=== PATIENT | male | born 1935 | race Caucasian/White ===

== ENCOUNTER 2017-10-09 15:16 | Emergency (ER) | payer MEDICARE, OTHER ==
[2017-10-09 16:56] LABS: BASOPHILS # (AUTO) 0.1 10^3/uL (0.0-0.1); BASOPHILS % (AUTO) 1.2 %; EOSINOPHILS # (AUTO) 0.2 10^3/uL (0.0-0.7); EOSINOPHILS % (AUTO) 2.7 %; HGB - HEMOGLOBIN 15.1 g/dL (14.0-18.0); LYMPHOCYTES % (AUTO) 27.2 %; MEAN CORPUSCULAR HEMOGLOBIN 30.2 pg (27.0-31.0); MEAN CORPUSCULAR HGB CONC 32.8 g/dL (32.0-36.0); MEAN PLATELET VOLUME 9.2 fL (7.4-11.4); MONOCYTES # (AUTO) 0.8 10^3/uL (0.0-1.0); MONOCYTES % (AUTO) 10.1 %; NEUTROPHILS # (AUTO) 4.4 10^3/uL (1.5-6.6); NEUTROPHILS % (AUTO) 58.8 %; PLT - PLATELET COUNT 193 10^3/uL (130-450); RED BLOOD COUNT 5.01 10^6/uL (4.70-6.10); RED CELL DISTRIBUTION WIDTH 13.2 % (12.0-15.0); WHITE BLOOD COUNT 7.5 x10^3/uL (4.8-10.8)
[2017-10-09 17:05] LABS: CALCIUM 9.7 mg/dL (8.5-10.3); CREATININE 0.9 mg/dL (0.6-1.2)
--- NOTE | 2017-10-09 17:05 | Ultrasound Report ---
EXAM: LEFT LOWER EXTREMITY VENOUS ULTRASOUND EXAM DATE: 10/09/2017 04:40 PM. CLINICAL HISTORY: Left lower extremity swelling popliteal pain hx DVT. COMPARISON: None. TECHNIQUE: Real-time sonographic vascular imaging was performed by the operations specialists through the lower extremity utilizing both color-flow and Doppler spectral analysis. Multiple promotions representative static umm ges were saved for review. FINDINGS: Common Femoral Vein (CFV): Normal. CFV-GSV Junction: Normal. Profunda Femoral Vein (PFV): Normal. Femoral Vein (FV) Prox: Normal. Femoral Vein (FV) Mid: Normal. Femoral Vein (FV) Dist: Normal. Popliteal Vein: Normal. Posterior Tibial Veins: Normal. Peroneal Veins: Normal. IMPRESSION: No evidence for deep venous thrombosis. [facility] Referring Provider Line: [phone] SITE ID: [id number]
--- NOTE | 2017-10-09 18:43 | ED Physician Documentation ---
History of Present Illness - Stated complaint Stated Complaint: PX BEHIND L KNEE - Chief complaint Chief Complaint: General - History obtained from History obtained from: Patient, Family - History of Present Illness Timing: Other (He has had long-standing problems with the left knee, it is always kind of stiff. For the last week or so though he can bend it much and it hurts behind the knee. 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.) Review of Systems Constitutional: denies: Fever, Chills GI: reports: Reviewed and negative : reports: Reviewed and negative PD PAST MEDICAL HISTORY - Past Medical History Cardiovascular: Atrial fibrillation Neuro: Headache/migraine GI: GERD : Other - Past Surgical History Past Surgical History: Yes General: Colonoscopy Ortho: Carpal Tunnel surgery - Present Medications Home Medications: Ambulatory Orders Medication Instructions Recorded Confirmed Aspirin [Gill Chewable Aspirin] 1 tab PO DAILY 01/01/16 01/01/16 Omeprazole [PriLOSEC] 1 cap PO DAILY 01/01/16 01/01/16 Meloxicam [Mobic] 7.5 mg PO BIDWM PRN #15 tablet 10/09/17 - Allergies Allergies/Adverse Reactions: Allergies Allergy/AdvReac Type Severity Reaction Status Date / Time nitroglycerin AdvReac Intermediate low b/p Verified 10/09/17 15:41 - Social History Does the pt smoke?: No Smoking Status: Never smoker Does the pt have substance abuse?: No - Immunizations Immunizations are current?: Yes - POLST Patient has POLST: No PD ED PE NORMAL - Vitals Vital signs reviewed: Yes - General General: Alert and oriented X 3, No acute distress - Extremities Extremities: Other (Left knee is nontender, full range of motion, some fullness and tenderness in the popliteal fossa without overt edema. No warmth or redness.) - Neuro Neuro: Alert and oriented X 3, Normal speech Results - Vitals Vitals: Vital Signs - 24 hr 10/09/17 15:36 Temperature 36.5 C Heart Rate 72 Respiratory 18 Rate Blood Pressure 165/88 H O2 Saturation 97 Oxygen O2 Source Room air - Labs Labs: Laboratory Tests 10/09/17 10/09/17 16:52 16:52 WBC 7.5 RBC 5.01 Hgb 15.1 Hct 46.0 MCV 92.0 MCH 30.2 MCHC 32.8 RDW 13.2 Plt Count 193 MPV 9.2 Neut # 4.4 Lymph # 2.0 [place] # 0.8 Eos # 0.2 Baso # 0.1 Absolute Nucleated RBC 0.00 Nucleated RBC % 0.0 Sodium 139 Potassium 4.1 Chloride 103 Carbon Dioxide 26 Anion Gap 10.0 BUN 16 Creatinine 0.9 Estimated GFR (MDRD) 81 L Glucose 86 Calcium 9.7 - Rads (name of study) LLE DVT scan Radiology: EMP read contemporaneously (no dvt) Departure - Departure Disposition: Home, Self Care Clinical Impression: Knee pain Qualifiers: Chronicity: acute Laterality: left Qualified Code(s): M25.562 - Pain in left knee Condition: Good Record reviewed to determine appropriate education?: Yes Instructions: ED Cyst Tinajero Follow-Up: [facility] [Provider Group] Prescriptions: Meloxicam [Mobic] 7.5 mg PO BIDWM PRN #15 tablet PRN Reason: Pain Comments: As discussed based on your examination 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 Follow-up with the orthopedist for further evaluation and treatment. Return if worse. Your blood pressure was elevated today on check into the emergency department. This does not mean that you have hypertension, it is a common phenomenon to come to the emergency department and have elevated blood pressure. I recommend that you see your primary care physician within the week to have it rechecked when you are feeling better.
[2017-10-09 18:50] VITALS: BP 156/93
== END 2017-10-09 18:50 | disposition home or self-care (01) ==
LOC: ED 15:16
DX: M25.562 Pain in left knee (principal); R03.0 Elevated blood-pressure reading, without diagnosis of hypertension; Z79.82 Long term (current) use of aspirin
CPT/HCPCS: 36415; 80048; 85025; 99283

== ENCOUNTER 2018-04-01 08:21 | Outpatient (CLI) | payer MEDICARE, OTHER ==
[2018-04-01 12:07] LABS: BASOPHILS # (AUTO) 0.1 10^3/uL (0.0-0.1); BASOPHILS % (AUTO) 0.9 %; EOSINOPHILS # (AUTO) 0.2 10^3/uL (0.0-0.7); EOSINOPHILS % (AUTO) 3.8 %; HGB - HEMOGLOBIN 15.1 g/dL (14.0-18.0); LYMPHOCYTES # (AUTO) 1.8 10^3/uL (1.5-3.5); LYMPHOCYTES % (AUTO) 31.1 %; MEAN CORPUSCULAR HEMOGLOBIN 31.5 pg (27.0-31.0); MEAN CORPUSCULAR HGB CONC 34.6 g/dL (32.0-36.0); MEAN PLATELET VOLUME 10.3 fL (7.4-11.4); MONOCYTES # (AUTO) 0.6 10^3/uL (0.0-1.0); NEUTROPHILS # (AUTO) 3.2 10^3/uL (1.5-6.6); NEUTROPHILS % (AUTO) 54.2 %; PLT - PLATELET COUNT 147 10^3/uL (130-450); WHITE BLOOD COUNT 5.9 x10^3/uL (4.8-10.8)
== END 2018-04-01 08:22 | disposition home or self-care (01) ==
LOC: LAB.F 08:21
PROVIDERS: ATTEND Physician Assistant Medical
DX: B35.1 Tinea unguium (principal)
CPT/HCPCS: 36415; 82565; 84450; 84460; 85025

== ENCOUNTER 2019-03-25 20:53 | Emergency (ER) | payer MEDICARE, OTHER ==
[2019-03-25 21:00] VITALS: BP 142/86
[2019-03-25] MEDS ORDERED: TETANUS/DIPHTHERIA/PERTUSSIS 0.5 ML SYRINGE IM ONE (21:27)
--- NOTE | 2019-03-25 21:28 | ED Physician Documentation ---
PD HPI LOWER EXT INJURY - Stated complaint Stated Complaint: LEG LAC - Chief complaint Chief Complaint: Laceration - History obtained from History obtained from: Patient - History of Present Illness PD HPI LOW EXT INJURY LOCATION: Right (Earlier in the day he cut his right barnes on a metal edge while working at home. About 5 years since his last tetanus shot. No other injuries.) Review of Systems Constitutional: reports: Reviewed and negative Cardiac: reports: Reviewed and negative Respiratory: reports: Reviewed and negative PD PAST MEDICAL HISTORY - Past Medical History Past Medical History: Yes Cardiovascular: Atrial fibrillation GI: GERD : Other - Past Surgical History Past Surgical History: Yes General: Colonoscopy Ortho: Carpal Tunnel surgery - Present Medications Home Medications: Ambulatory Orders Medication Instructions Recorded Confirmed Omeprazole [PriLOSEC] 1 cap PO DAILY 01/01/16 01/01/16 RX: Aspirin [Gill Chewable 1 tab PO DAILY 01/01/16 01/01/16 Aspirin] RX: Meloxicam [Mobic] 7.5 mg PO BIDWM PRN #15 tablet 10/09/17 - Allergies Allergies/Adverse Reactions: Allergies Allergy/AdvReac Type Severity Reaction Status Date / Time nitroglycerin AdvReac Intermediate low b/p Verified 10/09/17 15:41 hazelnuts Allergy Anaphylaxis Uncoded 03/25/19 21:21 - Social History Does the pt smoke?: No Smoking Status: Never smoker Does the pt drink ETOH?: Yes Does the pt have substance abuse?: No - Immunizations Immunizations are current?: Yes - POLST Patient has POLST: No PD ED PE NORMAL - Vitals Vital signs reviewed: Yes - General General: Alert and oriented X 3, No acute distress - Extremities Extremities: Other (There is a 2 cm linear shallow laceration right barnes that does not gape at all.) - Neuro Neuro: Alert and oriented X 3, Normal speech Results - Vitals Vitals: Vital Signs - 24 hr 03/25/19 20:56 Temperature 36.5 C Heart Rate 90 Respiratory 14 Rate Blood Pressure 142/86 H O2 Saturation 96 Oxygen O2 Source Room air Procedures - Laceration (location) Right barnes Length in cm: 2 Wound type: Linear, Superficial Wound Preparation: Irrigated copiously NS Skin layer closure: Dermabond, Steri strips Other: Tetanus booster given Complexity: Simple Departure - Departure Disposition: 01 Home, Self Care Clinical Impression: Laceration Condition: Good Record reviewed to determine appropriate education?: Yes Instructions: ED Laceration Ext Sutr Stap Tape Comments: Your blood pressure was elevated today on check into the emergency department. This does not mean that you have hypertension, it is a common phenomenon to come to the emergency department and have elevated blood pressure. I recommend that you see your primary care physician within the week to have it rechecked when you are feeling better. Discharge Date/Time: 03/25/19 21:36
== END 2019-03-25 21:36 | disposition home or self-care (01) ==
LOC: ED 20:53
DX: S81.811A Laceration without foreign body, right lower leg, initial encounter (principal); W26.8XXA Contact with other sharp object(s), not elsewhere classified, initial encounter; Y92.009 Unspecified place in unspecified non-institutional (private) residence as the place of occurrence of the external cause; R03.0 Elevated blood-pressure reading, without diagnosis of hypertension
CPT/HCPCS: 12001; 90471

== ENCOUNTER 2021-06-28 09:17 | Outpatient (CLI) | payer MEDICARE, OTHER ==
[2021-06-28 10:38] LABS: INR 3.6 (0.8-1.2); PT - PROTHROMBIN TIME 40.3 secs (9.9-12.6)
== END 2021-06-28 09:18 | disposition home or self-care (01) ==
LOC: LAB 09:17
PROVIDERS: ATTEND Nurse Practitioner Family
DX: I48.19 Other persistent atrial fibrillation (principal)
CPT/HCPCS: 36415; 36416; 85610

== ENCOUNTER 2022-01-06 22:00 | Outpatient (CLI) | payer MEDICARE, OTHER | END 2022-01-06 22:01 | disposition short-term general hospital (02) | LOC: EMS 22:00 | DX: R07.89 Other chest pain (principal); M79.602 Pain in left arm | CPT/HCPCS: A0425; A0429 ==

== ENCOUNTER 2022-02-11 08:00 | Outpatient (CLI) | payer MEDICARE, OTHER | END 2022-02-11 23:59 | disposition home or self-care (01) | LOC: LAB.S 08:00 | PROVIDERS: ATTEND Physician Assistant | DX: R30.0 Dysuria (principal) | CPT/HCPCS: 87077; 87086; 87181 ==

== ENCOUNTER 2022-03-03 21:53 | Outpatient (CLI) | payer MEDICARE, OTHER | END 2022-03-03 21:54 | disposition EMS.NT | LOC: EMS 21:53 | DX: Z03.89 Encounter for observation for other suspected diseases and conditions ruled out (principal) ==

== ENCOUNTER 2022-04-17 13:56 | Outpatient (CLI) | payer MEDICARE, OTHER ==
[2022-04-17 19:53] LABS: ABSOLUTE RETICS # AUTO 0.061 10^6/uL (0.020-0.110); BASOPHILS # (AUTO) 0.1 10^3/uL (0.0-0.1); BASOPHILS % (AUTO) 1.2 %; EOSINOPHILS # (AUTO) 0.1 10^3/uL (0.0-0.7); EOSINOPHILS % (AUTO) 1.2 %; HCT - HEMATOCRIT 35.5 % (42.0-52.0); HGB - HEMOGLOBIN 11.8 g/dL (14.0-18.0); LYMPHOCYTES # (AUTO) 1.3 10^3/uL (1.5-3.5); LYMPHOCYTES % (AUTO) 21.2 %; MEAN CORPUSCULAR HEMOGLOBIN 32.1 pg (27.0-31.0); MEAN CORPUSCULAR HGB CONC 33.2 g/dL (32.0-36.0); MEAN CORPUSCULAR VOLUME 96.5 fL (80.0-94.0); MEAN PLATELET VOLUME 12.9 fL (7.4-11.4); MONOCYTES # (AUTO) 0.5 10^3/uL (0.0-1.0); MONOCYTES % (AUTO) 8.7 %; NEUTROPHILS % (AUTO) 67.5 %; PLT - PLATELET COUNT 112 10^3/uL (130-450); RED BLOOD COUNT 3.68 10^6/uL (4.70-6.10); RETICULOCYTE COUNT % (AUTO) 1.66 % (0.5-2.3); WHITE BLOOD COUNT 5.9 x10^3/uL (4.8-10.8)
[2022-04-17 19:59] LABS: ALBUMIN/GLOBULIN RATIO 1.8 (1.0-2.2); BILIRUBIN,DIRECT 0.2 mg/dL (0.1-0.5); BILIRUBIN,TOTAL 1.1 mg/dL (0.2-1.0); CALCIUM 9.2 mg/dL (8.5-10.3); POTASSIUM 3.9 mmol/L (3.5-5.0); TOTAL PROTEIN 6.2 g/dL (6.7-8.2)
== END 2022-04-17 13:57 | disposition home or self-care (01) ==
LOC: LAB.S 13:56
PROVIDERS: ATTEND Internal Medicine Hematology & Oncology
DX: C82.91 Follicular lymphoma, unspecified, lymph nodes of head, face, and neck (principal)
CPT/HCPCS: 36415; 80053; 82248; 83010; 83615; 85025; 85045

== ENCOUNTER 2023-02-12 13:45 | Emergency (ER) | payer MEDICARE, OTHER ==
[2023-02-12 13:55] VITALS: BP 118/86
--- NOTE | 2023-02-12 14:07 | ED Physician Documentation ---
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 He has dementia and does not remember falling and much of the history is from the because of this. She states he tripped and fell to the right and hit a retaining rock wall with his shoulder and right upper chest. He has a scrape on the left arm. No clear head injury. PD PAST MEDICAL HISTORY - Past Medical History Cardiovascular: Atrial fibrillation GI: GERD : Other - Past Surgical History Past Surgical History: Yes General: Colonoscopy Ortho: Carpal Tunnel surgery - Present Medications Home Medications: Ambulatory Orders Medication Instructions Recorded Confirmed Donepezil [Aricept] 5 mg PO HS 02/12/23 02/12/23 OLANZapine ODT [Zyprexa Odt] 5 mg SL BID 02/12/23 02/12/23 Warfarin [Coumadin] 5 mg PO DAILY 02/12/23 02/12/23 carvediloL [Coreg] 3.125 mg PO DAILY 02/12/23 02/12/23 - Allergies Allergies/Adverse Reactions: Allergies Allergy/AdvReac Type Severity Reaction Status Date / Time nitroglycerin AdvReac Intermediate low b/p Verified 02/12/23 13:50 hazelnuts Allergy Anaphylaxis Uncoded 03/25/19 21:21 - Social History Does the pt smoke?: No Smoking Status: Never smoker Does the pt drink ETOH?: Yes Does the pt have substance abuse?: No - Immunizations Immunizations are current?: Yes - POLST Patient has POLST: No PD ED PE NORMAL - Vitals Vital signs reviewed: Yes - General General: Other (He is alert and knows his name and that he is in the hospital but poor historian for recent events and does not know his age or date.) - HEENT HEENT: PERRL, EOMI - Neck Neck: Supple, no meningeal sign, No bony TTP - Respiratory Respiratory: No respiratory distress, Clear bilaterally - Abdomen Abdomen: Normal bowel sounds, Soft, Non tender - Back Back: No CVA TTP, No spinal TTP - Derm Derm: Normal color, Warm and dry - Extremities Extremities: Other (There is an abrasion on the left elbow. No tenderness or limited range of motion of any joints in the upper extremities.) - Neuro Eye Opening: Spontaneous Motor: Obeys Commands Verbal: Confused GCS Score: 14 Results - Vitals Vitals: Vital Signs - 24 hr 02/12/23 13:50 Temperature 36.2 C L Heart Rate 58 L Respiratory 16 Rate Blood Pressure 118/86 H O2 Saturation 97 Oxygen O2 Source Room air - Labs Labs: Laboratory Tests 02/12/23 14:51 INR (Fingerstick) 2.8 H - Rads (name of study) CT of the cervical spine shows multilevel degenerative changes and ACDF at C4-C5. No trauma. Relevant Findings:: Final report received, EMP independent interpretation of test CT of the chest shows known chronic cysts of the liver, no acute abnormality. Relevant Findings:: Final report received, EMP independent interpretation of test CT of the head showing microvascular ischemic changes and volume loss without acute trauma. Relevant Findings:: Final report received, EMP independent interpretation of test PD Medical Decision Making - ED course ED course: INR therapeutic at 2.8. CT chest neck and head negative for acute trauma. Moving all major joints well on reexamination and has been ambulatory. The patient and family were counseled as to the diagnosis and need for follow- up. I counseled the patient with regard to signs and symptoms that would necessitate an urgent reevaluation in the emergency department. They understand they are welcome to return at any time if worse or if not improving as expected. This document was made in part using voice recognition software. While efforts are made to proofread this documents, sound alike and grammatical errors may occur. Departure - Departure Disposition: 01 Home, Self Care Clinical Impression: Adequate anticoagulation on anticoagulant therapy Contusion of chest wall Qualifiers: Encounter type: initial encounter Laterality: right Qualified Code(s): S20.211A - Contusion of right front wall of thorax, initial encounter Condition: Good Record reviewed to determine appropriate education?: Yes Instructions: ED Contusion Chest Wall Comments: His INR is 2.8. We did a CT of the head, cervical spine, and chest which would catch all the ribs and upper abdomen. There are no fractures or other serious findings of trauma seen. Return for new or worsening symptoms. Tylenol as needed for aches and pains. Follow-up with your doctor towards the end of the week if there are any persistent issues.
--- NOTE | 2023-02-12 14:53 | CT Report ---
PROCEDURE: CERVICAL SPINE WO INDICATIONS: fall TECHNIQUE: Noncontrast 3 mm thick sections acquired from the skull base to the T4 level. Sagittal and coronal r eformats were then constructed. For radiation dose reduction, the following was used: automated exp osure control, adjustment of mA and/or kV according to patient size. COMPARISON: None. FINDINGS: Image quality: Excellent. Bones: No fractures or dislocations. Visualized superior ribs are intact. Postoperative changes of C4-5 ACDF without complication. Soft tissues: Prevertebral soft tissues are normal in thickness. No paravertebral hematomas. No ap ical pneumothoraces. IMPRESSION: 1. No acute traumatic abnormality of the cervical spine. 2. Multilevel degenerative changes of the cervical spine. 3. Postoperative changes of ACDF at C4-5. Reviewed by: Marshal Dhillon on 02/12/2023 1:51 PM MAUREEN Approved by: Marshal Dhillon on 02/12/2023 1:51 PM MAUREEN Station ID: [id number]
--- NOTE | 2023-02-12 14:56 | CT Report ---
PROCEDURE: CHEST WO INDICATIONS: chest inj TECHNIQUE: Noncontrast 1mm axial images were acquired from the pulmonary apices to the posterior costophrenic an gles. Axial 5 mm soft tissue kernel reconstructions were performed as well as 8 mm axial MIP and cor onal and sagittal 5 mm reformations. For radiation dose reduction, the following was used: automate d exposure control, adjustment of mA and/or kV according to patient size. COMPARISON: None FINDINGS: Image quality: Excellent. Lungs and pleura: No consolidation. No pleural effusions. No pneumothorax. No suspicious pulmonary n odules which require follow up. Mediastinum: Heart size is normal. No pericardial effusion. No large vessel abnormality. No mediastin al adenopathy by size criteria. Coronary artery calcifications. Aortic valve replacement. Chest wall and lower neck: Thyroid is unremarkable. No axillary or supraclavicular adenopathy by size . Bones: No aggressive osseous abnormality. Upper Abdomen: Simple cysts of the liver. IMPRESSION: No acute traumatic abnormality of the chest. Reviewed by: Marshal Dhillon on 02/12/2023 1:55 PM MAUREEN Approved by: Marshal Dhillon on 02/12/2023 1:55 PM MAUREEN Station ID: [id number]
--- NOTE | 2023-02-12 14:58 | CT Report ---
PROCEDURE: HEAD WO INDICATIONS: head inj TECHNIQUE: Noncontrast 4.5 mm thick angled axial sections acquired from the foramen magnum to the vertex. For r adiation dose reduction, the following was used: automated exposure control, adjustment of mA and/or kV according to patient size. COMPARISON: None. FINDINGS: Image quality: Excellent. CSF spaces: Basal cisterns are patent. No extra-axial fluid collections. Ventricles are normal in size and shape. Brain: No midline shift. No intracranial masses or hemorrhage. Murguia-white matter interface is norm al. Subcortical and periventricular hypodensities are consistent with microvascular ischemic disease and age-related cerebral volume loss. Bilateral frontal hygromas. Skull and face: Calvarium and visualized facial bones are intact, without suspicious lesions. Sinuses: Visualized sinuses and mastoids are clear. IMPRESSION: 1. No acute intracranial abnormality. 2. Microvascular ischemic disease and age-related cerebral volume loss. Reviewed by: Marshal Dhillon on 02/12/2023 1:56 PM MAUREEN Approved by: Marshal Dhillon on 02/12/2023 1:56 PM AKJUAN Station ID: [id number]
== END 2023-02-12 15:12 | disposition home or self-care (01) ==
LOC: ED 13:45
DX: S20.211A Contusion of right front wall of thorax, initial encounter (principal); W19.XXXA Unspecified fall, initial encounter; Y93.H2 Activity, gardening and landscaping; Y92.096 Garden or yard of other non-institutional residence as the place of occurrence of the external cause; I48.91 Unspecified atrial fibrillation; Z79.01 Long term (current) use of anticoagulants; Z79.899 Other long term (current) drug therapy
CPT/HCPCS: 85610; 99283; 99284

== ENCOUNTER 2023-02-26 14:45 | Outpatient (CLI) | payer MEDICARE, OTHER | END 2023-02-26 14:46 | disposition critical access hospital (66) | LOC: EMS 14:45 | DX: S01.112A Laceration without foreign body of left eyelid and periocular area, initial encounter (principal); S00.81XA Abrasion of other part of head, initial encounter; S40.812A Abrasion of left upper arm, initial encounter; M79.652 Pain in left thigh; W01.0XXA Fall on same level from slipping, tripping and stumbling without subsequent striking against object, initial encounter; Y92.414 Local residential or business street as the place of occurrence of the external cause | CPT/HCPCS: A0425; A0429 ==

== ENCOUNTER 2023-04-20 16:43 | Emergency (ER) | payer MEDICARE, OTHER ==
--- NOTE | 2023-04-20 18:39 | CT Report ---
PROCEDURE: CT brain without contrast INDICATIONS: fall, head injury, pt on warfarin TECHNIQUE: Helical axial CT of the brain was obtained without contrast and reformatted in multiple p lanes. Radiation dose reduction was achieved using automated exposure control or adjustment of mA and /or kV according to patient size. COMPARISON: 02/12/2023 FINDINGS: CSF spaces: Ventricles are appropriate in size and position. No hydrocephalus. Basal cisterns unre markable. Brain: No midline shift. No intracranial masses or hemorrhage. Murguia-white matter interface is norm al. Moderate atrophy and multifocal white matter chronic ischemic change noted. Atherosclerotic vascular calcification noted in the cavernous segments of both internal carotid arteries as well as the intrad ural vertebral arteries. Incidental right frontal extra-axial arachnoid cyst measures 3.9 x 2.2 cm as sociated mass effect on the superior frontal gyrus and thickening of the frontal bone Skull and face: Calvarium and skull base are unremarkable without suspicious lesion. Bilateral intr aocular lens replacement Sinuses: Visualized sinuses and mastoids are clear. IMPRESSION: Atrophy and chronic ischemic change without intracranial hemorrhage or mass effect. Incidental right frontal extra-axial arachnoid cyst Reviewed by: Edy Hou MD on 04/20/2023 5:37 PM AKDT Approved by: Edy Hou MD on 04/20/2023 5:37 PM AKDT Station ID: [id number]
[2023-04-20] MEDS ORDERED: ACETAMINOPHEN 325 MG TABLET PO STA (19:22)
--- NOTE | 2023-04-20 19:28 | XRAY Report ---
PROCEDURE: Ribs w/PA Chest RT INDICATIONS: R rib pain s/p fall TECHNIQUE: 4 views of the ribs were acquired, along with a single view chest. COMPARISON: None. FINDINGS: Surgical changes and devices: None. Bones and chest wall: No fractures or dislocations. No suspicious bony lesions. Overlying soft tis sues appear unremarkable. Status post ACDF of the lower cervical spine. Lungs and pleura: No pleural effusions or pneumothorax. Lungs appear clear. Mediastinum: Mediastinal contours appear normal. Heart size is enlarged. IMPRESSION: No displaced rib fracture or pneumothorax. Reviewed by: Marshal Dhillon on 04/20/2023 7:27 PM PDT Approved by: Marshal Dhillon on 04/20/2023 7:27 PM PDT Station ID: [id number]
--- NOTE | 2023-04-20 19:31 | ED Physician Documentation ---
History of Present Illness - Stated complaint Stated Complaint: GLF - Chief complaint Chief Complaint: Trauma Ch/Bk - History obtained from History obtained from: Patient, Family - History of Present Illness Timing: Today Pain level max: 4 Pain level now: 3 - Additonal information Additional information: 87-year-old male presents to the emergency department after falling asleep on a bench today and falling off the bench and onto a carpeted surface. Unclear if he hit his head or not. He is on warfarin. Complains of right-sided rib pain. No neck or back pain. Worse with movement, better with rest. No difficulty breathing. No vomiting. No diarrhea. No constipation. No altered mental status. No fevers. No chills. No shoulder, hip or knee pain. Review of Systems Constitutional: denies: Fever, Chills GI: denies: Vomiting, Diarrhea Skin: denies: Rash Musculoskeletal: denies: Neck pain, Back pain Neurologic: denies: Headache PD PAST MEDICAL HISTORY - Past Medical History Cardiovascular: Atrial fibrillation GI: GERD : Other - Past Surgical History Past Surgical History: Yes General: Colonoscopy Ortho: Carpal Tunnel surgery - Present Medications Home Medications: Ambulatory Orders Medication Instructions Recorded Confirmed Donepezil [Aricept] 5 mg PO HS 02/12/23 02/12/23 OLANZapine ODT [Zyprexa Odt] 5 mg SL BID 02/12/23 02/12/23 Warfarin [Coumadin] 5 mg PO DAILY 02/12/23 02/12/23 carvediloL [Coreg] 3.125 mg PO DAILY 02/12/23 02/12/23 - Allergies Allergies/Adverse Reactions: Allergies Allergy/AdvReac Type Severity Reaction Status Date / Time hazelnut Allergy Severe Anaphylaxis Verified 04/20/23 16:47 nitroglycerin AdvReac Intermediate low b/p Verified 04/20/23 16:47 - Social History Does the pt smoke?: No Smoking Status: Never smoker Does the pt drink ETOH?: Yes Does the pt have substance abuse?: No - Immunizations Immunizations are current?: Yes - POLST Patient has POLST: No PD ED PE NORMAL - Vitals Vital signs reviewed: Yes - General General: Alert and oriented X 3, No acute distress, Well developed/nourished - HEENT HEENT: Atraumatic, PERRL, Ears normal, Moist mucous membranes, Pharynx benign - Neck Neck: Supple, no meningeal sign, No bony TTP - Cardiac Cardiac: RRR, Strong equal pulses - Respiratory Respiratory: No respiratory distress, Clear bilaterally - Abdomen Abdomen: Normal bowel sounds, Soft, Non tender, Non distended - Back Back: No spinal TTP - Derm Derm: Warm and dry - Extremities Extremities: No deformity, No tenderness to palpate, Normal ROM s pain, No edema, No calf tenderness / cord - Neuro Neuro: Alert and oriented X 3 - Psych Psych: Normal mood, Normal affect - Free text exam Free text exam: Mild tender to palpation right lower ribs, approximately 10 through 12, posterior axillary line. No crepitus. No deformity. No ecchymosis Results - Vitals Vitals: Vital Signs - 24 hr 04/20/23 04/20/23 16:49 19:33 Temperature 36.5 C Heart Rate 54 L 59 L Respiratory 16 11 L Rate Blood Pressure 157/83 H 144/65 H O2 Saturation 99 100 Oxygen O2 Source Room air - Labs Labs: Laboratory Tests 04/20/23 17:28 INR (Fingerstick) 2.2 H - Rads (name of study) Head CT Relevant Findings:: Final report received, See rad report Right rib with chest x-ray Relevant Findings:: Final report received, See rad report PD Medical Decision Making - ED course Complexity details: re-evaluated patient, considered differential, d/w patient, d/w family ED course: No acute findings on head CT or rib series with chest x-ray. INR is 2.2. Pain improved with Tylenol. No indication for advanced imaging. No pneumothorax or hemothorax. No crepitus. No ecchymosis. We will continue Tylenol at home and follow-up with his doctor for further care. Patient counseled regarding signs and symptoms for which I believe and urgent re-evaluation would be necessary. Patient with good understanding of and agreement to plan and is comfortable going home at this time This document was made in part using voice recognition software. While efforts are made to proofread this document, sound alike and grammatical errors may occur. Patient is ambulating without difficulty in the emergency department. Departure - Departure Disposition: 01 Home, Self Care Clinical Impression: Adequate anticoagulation on anticoagulant therapy, Ground-level fall Contusion of chest wall Qualifiers: Encounter type: initial encounter Laterality: right Qualified Code(s): S20.211A - Contusion of right front wall of thorax, initial encounter Condition: Good Instructions: ED Contusion Chest Wall Follow-Up: Meera Marquis MD [Primary Care Provider] - Within 1 week Comments: Your head CT and rib x-rays do not show any acute abnormalities today. Please follow-up with your doctor as needed for further care. You can use Tylenol as needed for pain at home. Your INR is 2.2 today. Forms: PCP List Discharge Date/Time: 04/20/23 19:38
[2023-04-20 19:42] VITALS: BP 144/65; O2SAT 100
== END 2023-04-20 19:38 | disposition home or self-care (01) ==
LOC: ED 16:43
DX: S20.211A Contusion of right front wall of thorax, initial encounter (principal); W17.89XA Other fall from one level to another, initial encounter; I48.91 Unspecified atrial fibrillation; Z79.01 Long term (current) use of anticoagulants
CPT/HCPCS: 70450; 71101; 85610; 99283; 99284; A9270

== ENCOUNTER 2023-05-31 17:59 | Emergency (ER) | payer MEDICARE, OTHER ==
--- NOTE | 2023-05-31 18:12 | ED Physician Documentation ---
PD HPI HEAD INJURY - Stated complaint Stated Complaint: HEAD INJ - History obtained from History obtained from: Patient - Additional information Additional information: 88-year-old gentleman on warfarin had a trip and fall and hit his forehead on the ground. He has a mild headache. No loss of consciousness. This happened about 2 hours ago. PD PAST MEDICAL HISTORY - Past Medical History Cardiovascular: Atrial fibrillation GI: GERD : Other - Past Surgical History Past Surgical History: Yes General: Colonoscopy Ortho: Carpal Tunnel surgery - Present Medications Home Medications: Ambulatory Orders Medication Instructions Recorded Confirmed Donepezil [Aricept] 5 mg PO HS 02/12/23 05/31/23 OLANZapine ODT [Zyprexa Odt] 5 mg SL BID 02/12/23 05/31/23 Warfarin [Coumadin] 5 mg PO DAILY 02/12/23 05/31/23 carvediloL [Coreg] 3.125 mg PO DAILY 02/12/23 05/31/23 - Allergies Allergies/Adverse Reactions: Allergies Allergy/AdvReac Type Severity Reaction Status Date / Time hazelnut Allergy Severe Anaphylaxis Verified 05/31/23 18:13 nitroglycerin AdvReac Intermediate low b/p Verified 05/31/23 18:13 - Social History Does the pt smoke?: No Smoking Status: Never smoker Does the pt drink ETOH?: Yes Does the pt have substance abuse?: No - Immunizations Immunizations are current?: Yes - POLST Patient has POLST: No PD ED PE NORMAL - Vitals Vital signs reviewed: Yes - General General: Alert and oriented X 3, No acute distress - HEENT HEENT: PERRL, EOMI, Other (Abrasion above the left eyebrow) - Neck Neck: Supple, no meningeal sign, No bony TTP - Extremities Extremities: Other (Nontender skin care proximal forearm on the left.) - Neuro Neuro: Alert and oriented X 3, Normal speech - Psych Psych: Normal mood, Normal affect Results - Vitals Vitals: Vital Signs - 24 hr 05/31/23 18:09 Temperature 36.2 C L Heart Rate 71 Respiratory 20 Rate Blood Pressure 165/131 H O2 Saturation 100 Oxygen O2 Source Room air - Labs Labs: Laboratory Tests 05/31/23 18:13 INR (Fingerstick) 2.2 H - Rads (name of study) CT head Relevant Findings:: Final report received, EMP independent interpretation of test Procedures - Laceration (location) Proximal left forearm Length in cm: 2 Wound type: Linear, Superficial Wound preparation: Irrigated copiously NS Skin layer closure: Dermabond Other: Patient tolerated well, No complications, Neurovascular intact PD Medical Decision Making - ED course ED course: CT of the head was unremarkable. INR 2.2. Did not require any pain medication here. The patient and family were counseled as to the diagnosis and need for follow- up. I counseled the patient with regard to signs and symptoms that would necessitate an urgent reevaluation in the emergency department. They understand they are welcome to return at any time if worse or if not improving as expected. This document was made in part using voice recognition software. While efforts are made to proofread this documents, sound alike and grammatical errors may occur. Departure - Departure Disposition: 01 Home, Self Care Clinical Impression: Adequate anticoagulation on anticoagulant therapy Head injury Qualifiers: Encounter type: initial encounter Qualified Code(s): S09.90XA - Unspecified injury of head, initial encounter Facial abrasion Qualifiers: Encounter type: initial encounter Qualified Code(s): S00.81XA - Abrasion of other part of head, initial encounter Skin tear of elbow without complication Qualifiers: Encounter type: initial encounter Laterality: left Qualified Code(s): S51.012A - Laceration without foreign body of left elbow, initial encounter Condition: Good Record reviewed to determine appropriate education?: Yes Instructions: ED Head Injury Closed, ED Laceration Facial Skin Glue, Falls Prevent Home, Falls Change Living Space Comments: Your INR today is 2.2 and your CAT scan of the head was normal. I am including some information in this packet about how to make your home safer with regard to fall hazards. Return for new or worsening symptoms especially significant headache.
[2023-05-31 18:15] VITALS: BP 165/131; O2SAT 100
--- NOTE | 2023-05-31 18:57 | CT Report ---
PROCEDURE: HEAD WO INDICATIONS: head inj TECHNIQUE: Noncontrast 4.5 mm thick angled axial sections acquired from the foramen magnum to the vertex. For r adiation dose reduction, the following was used: automated exposure control, adjustment of mA and/or kV according to patient size. COMPARISON: 04/20/2023 FINDINGS: Image quality: Excellent. CSF spaces: Basal cisterns are patent. Right frontal extra-axial arachnoid cyst is again seen unchan ged in size and appearance from previous studies The ventricles are symmetric in size and shape. Brain: No intracranial bleeds or masses. There is cerebral volume loss for age, with resultant vent ricular and sulcal prominence. There are periventricular and deep white matter chronic small vessel ischemic changes. There is intracranial internal carotid artery atherosclerosis. Skull and face: Calvarium and visualized facial bones appear intact, without suspicious lesions. Sinuses: Visualized sinuses and mastoids are clear. IMPRESSION: 1. No acute intracranial abnormalities. No significant changes from previous study. Reviewed by: Damir Longo MD on 05/31/2023 6:56 PM PDT Approved by: Damir Longo MD on 05/31/2023 6:56 PM PDT Station ID: [id number]
== END 2023-05-31 19:15 | disposition home or self-care (01) ==
LOC: ED 17:59
DX: S09.90XA Unspecified injury of head, initial encounter (principal); S00.81XA Abrasion of other part of head, initial encounter; S51.012A Laceration without foreign body of left elbow, initial encounter; W01.198A Fall on same level from slipping, tripping and stumbling with subsequent striking against other object, initial encounter; Y92.89 Other specified places as the place of occurrence of the external cause; Y99.9 Unspecified external cause status; I48.91 Unspecified atrial fibrillation; Z79.01 Long term (current) use of anticoagulants
CPT/HCPCS: 12011; 85610; 99283; 99284

== ENCOUNTER 2023-07-22 17:34 | Emergency (ER) | payer MEDICARE, OTHER ==
[2023-07-22 18:22] LABS: BASOPHILS # (AUTO) 0.1 10^3/uL (0.0-0.1); EOSINOPHILS # (AUTO) 0.2 10^3/uL (0.0-0.7); EOSINOPHILS % (AUTO) 3.4 %; HCT - HEMATOCRIT 35.8 % (42.0-52.0); HGB - HEMOGLOBIN 11.9 g/dL (14.0-18.0); LYMPHOCYTES # (AUTO) 1.3 10^3/uL (1.5-3.5); LYMPHOCYTES % (AUTO) 22.7 %; MEAN CORPUSCULAR HGB CONC 33.2 g/dL (32.0-36.0); MEAN CORPUSCULAR VOLUME 93.2 fL (80.0-94.0); MEAN PLATELET VOLUME 12.7 fL (7.4-11.4); MONOCYTES # (AUTO) 0.7 10^3/uL (0.0-1.0); MONOCYTES % (AUTO) 11.2 %; NEUTROPHILS # (AUTO) 3.6 10^3/uL (1.5-6.6); NEUTROPHILS % (AUTO) 61.4 %; PLT - PLATELET COUNT 145 10^3/uL (130-450); RED BLOOD COUNT 3.84 10^6/uL (4.70-6.10); RED CELL DISTRIBUTION WIDTH 13.7 % (12.0-15.0); WHITE BLOOD COUNT 5.9 x10^3/uL (4.8-10.8)
[2023-07-22 18:24] LABS: INR 2.3 (0.8-1.2); PT - PROTHROMBIN TIME 23.3 secs (9.9-12.6)
[2023-07-22 18:37] LABS: ALBUMIN/GLOBULIN RATIO 1.6 (1.0-2.2); BILIRUBIN,TOTAL 1.1 mg/dL (0.2-1.0); CALCIUM 9.7 mg/dL (8.5-10.3); CREATININE 0.9 mg/dL (0.6-1.3); POTASSIUM 4.5 mmol/L (3.5-4.5); TOTAL PROTEIN 6.5 g/dL (6.4-8.9)
--- NOTE | 2023-07-22 18:58 | ED Physician Documentation ---
History of Present Illness - Stated complaint Stated Complaint: - Chief complaint Chief Complaint: General - History obtained from History obtained from: Patient, Family - Additonal information Additional information: 88-year-old gentleman presents with his . He has had some darker stools lately. Nothing obviously bloody but was referred here by GI for potential GI bleeding. He has no history of GI bleeding. 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 He does have mild dementia so much of the history is from the . PD PAST MEDICAL HISTORY - Past Medical History Past Medical History: Yes Cardiovascular: Atrial fibrillation GI: GERD : Other - Past Surgical History Past Surgical History: Yes General: Colonoscopy Ortho: Carpal Tunnel surgery - Present Medications Home Medications: Ambulatory Orders Medication Instructions Recorded Confirmed Donepezil [Aricept] 5 mg PO HS 02/12/23 05/31/23 OLANZapine ODT [Zyprexa Odt] 5 mg SL BID 02/12/23 05/31/23 Warfarin [Coumadin] 5 mg PO DAILY 02/12/23 05/31/23 carvediloL [Coreg] 3.125 mg PO DAILY 02/12/23 05/31/23 - Allergies Allergies/Adverse Reactions: Allergies Allergy/AdvReac Type Severity Reaction Status Date / Time hazelnut Allergy Severe Anaphylaxis Verified 06/08/23 21:53 nitroglycerin AdvReac Intermediate low b/p Verified 06/08/23 21:53 - Social History Does the pt smoke?: No Smoking Status: Never smoker Does the pt drink ETOH?: Yes Does the pt have substance abuse?: No - Immunizations Immunizations are current?: Yes - POLST Patient has POLST: No PD ED PE NORMAL - General General: No acute distress - Abdomen Abdomen: Non tender - Rectal Rectal: Other (Brown stool that does not look melanic nor bloody in the vault and sent for guaiac) - Psych Psych: Normal mood Results - Vitals Vitals: Vital Signs - 24 hr 07/22/23 07/22/23 17:47 19:16 Temperature 36.7 C Heart Rate 59 L 63 Respiratory 18 16 Rate Blood Pressure 163/63 H 176/83 H O2 Saturation 99 100 Oxygen O2 Source Room air - Labs Labs: Microbiology 07/22/23 19:20 Occult Blood - Final Stool Laboratory Tests 07/22/23 07/22/23 07/22/23 18:06 18:06 18:06 WBC 5.9 RBC 3.84 L Hgb 11.9 L Hct 35.8 L MCV 93.2 MCH 31.0 MCHC 33.2 RDW 13.7 Plt Count 145 MPV 12.7 H Neut # (Auto) 3.6 Lymph # (Auto) 1.3 L [place] # (Auto) 0.7 Eos # (Auto) 0.2 Baso # (Auto) 0.1 Absolute Nucleated RBC 0.00 Nucleated RBC % 0.0 PT 23.3 H INR 2.3 H Sodium 139 Potassium 4.5 Chloride 105 Carbon Dioxide 29 Anion Gap 5.0 L BUN 18 Creatinine 0.9 Estimated GFR (MDRD) 80 L Glucose 123 H Calcium 9.7 Total Bilirubin 1.1 H AST 23 ALT 10 Alkaline Phosphatase 73 Total Protein 6.5 Albumin 4.0 Globulin 2.5 Albumin/Globulin Ratio 1.6 Lipase 20 Urine Color Urine Clarity Urine pH Ur Specific [place] Urine Protein Urine Glucose (UA) Urine Ketones Urine Occult Blood Urine Nitrite Urine Bilirubin Urine Urobilinogen Ur Leukocyte Esterase Ur Microscopic Review Urine Culture Comments 07/22/23 19:06 WBC RBC Hgb Hct MCV MCH MCHC RDW Plt Count MPV Neut # (Auto) Lymph # (Auto) [place] # (Auto) Eos # (Auto) Baso # (Auto) Absolute Nucleated RBC Nucleated RBC % PT INR Sodium Potassium Chloride Carbon Dioxide Anion Gap BUN Creatinine Estimated GFR (MDRD) Glucose Calcium Total Bilirubin AST ALT Alkaline Phosphatase Total Protein Albumin Globulin Albumin/Globulin Ratio Lipase Urine Color YELLOW Urine Clarity CLEAR Urine pH 6.0 Ur Specific [place] >=1.030 H Urine Protein TRACE Urine Glucose (UA) NEGATIVE Urine Ketones NEGATIVE Urine Occult Blood NEGATIVE Urine Nitrite NEGATIVE Urine Bilirubin NEGATIVE Urine Urobilinogen 1 (NORMAL) Ur Leukocyte Esterase NEGATIVE Ur Microscopic Review NOT INDICATED Urine Culture Comments NOT INDICATED PD Medical Decision Making - ED course Complexity details: reviewed results (Hemoglobin 11.9, at the end of May he was here and it was 12.0 and in April he was here and it was 11.8 so this is stable. INR therapeutic at 2.3. CMP unremarkable.) ED course: 88-year-old gentleman on warfarin has had some oddly colored stools recently. Not obviously blood. He was guaiac negative with stable H&H though. Departure - Departure Disposition: 01 Home, Self Care Clinical Impression: Dark stools Condition: Good Record reviewed to determine appropriate education?: Yes Comments: There was no blood in his stool today. And his blood counts are pretty much where they have been recently without evidence of recent bleeding there. Call your doctor to arrange a follow-up appointment, make the next available appointment. In the interim, return anytime if worse or if new symptoms de velop. Forms: PCP List
[2023-07-22 19:26] VITALS: BP 176/83; O2SAT 100
[2023-07-22 19:29] LABS: GLUCOSE, URINE (UA) NEGATIVE (NEGATIVE); KETONES,URINE (UA) NEGATIVE (NEGATIVE); LEUKOCYTE ESTERASE, URINE NEGATIVE (NEGATIVE); NITRITE,URINE NEGATIVE (NEGATIVE); OCCULT BLOOD,URINE NEGATIVE (NEGATIVE); PROTEIN,URINE TRACE mg/dL (NEGATIVE); UROBILINOGEN,URINE 1 (NORMAL) E.U./dL (NORMAL)
[2023-07-22 19:30] LABS: BILIRUBIN,URINE NEGATIVE (NEGATIVE); CLARITY,URINE CLEAR (CLEAR); ICTOTEST,URINE NEGATIVE
== END 2023-07-22 19:55 | disposition home or self-care (01) ==
LOC: ED 17:34
DX: R19.5 Other fecal abnormalities (principal); I48.91 Unspecified atrial fibrillation; Z79.01 Long term (current) use of anticoagulants
CPT/HCPCS: 36415; 80053; 81001; 81003; 82272; 83690; 85025; 85610; 87086; 99283

== ENCOUNTER 2023-08-05 10:22 | Emergency (ER) | payer MEDICARE, OTHER ==
--- NOTE | 2023-08-05 10:57 | ED Physician Documentation ---
History of Present Illness - Stated complaint Stated Complaint: GLF - Chief complaint Chief Complaint: Trauma Hd/Nk - Additonal information Additional information: Patient 88-year-old male presenting to the emergency department after fall. Accompanied by who is primary regional geodetic advisor. was not present during the event but reports that she found him down near their treadmill. He is on Coumadin and has a known history of severe dementia. Has been complaining of "head pain" per his . Also complaining of left-sided chest wall pain. History is limited by his dementia. Review of Systems Unable to obtain: Dementia PD PAST MEDICAL HISTORY - Past Medical History Cardiovascular: Atrial fibrillation GI: GERD : Other - Past Surgical History Past Surgical History: Yes General: Colonoscopy Ortho: Carpal Tunnel surgery - Present Medications Home Medications: Ambulatory Orders Medication Instructions Recorded Confirmed Donepezil [Aricept] 5 mg PO HS 02/12/23 05/31/23 OLANZapine ODT [Zyprexa Odt] 5 mg SL BID 02/12/23 05/31/23 Warfarin [Coumadin] 5 mg PO DAILY 02/12/23 05/31/23 carvediloL [Coreg] 3.125 mg PO DAILY 02/12/23 05/31/23 - Allergies Allergies/Adverse Reactions: Allergies Allergy/AdvReac Type Severity Reaction Status Date / Time hazelnut Allergy Severe Anaphylaxis Verified 06/08/23 21:53 nitroglycerin AdvReac Intermediate low b/p Verified 06/08/23 21:53 - Social History Does the pt smoke?: No Smoking Status: Never smoker Does the pt drink ETOH?: Yes Does the pt have substance abuse?: No - Immunizations Immunizations are current?: Yes - POLST Patient has POLST: No PD ED PE NORMAL - Vitals Vital signs reviewed: Yes - General General: No acute distress - HEENT HEENT: Atraumatic - Cardiac Cardiac: RRR - Respiratory Respiratory: No respiratory distress - Abdomen Abdomen: Normal bowel sounds - Extremities Extremities: No deformity - Neuro Neuro: Other (Patient disorientated to place and time. Generally nonfocal nonlateralizing neurologic exam.) Results - Vitals Vitals: Vital Signs - 24 hr 08/05/23 08/05/23 08/05/23 10:29 13:03 14:08 Temperature 36.8 C Heart Rate 54 L 47 L 59 L Respiratory 18 16 18 Rate Blood Pressure 124/51 L 135/67 H 137/82 H O2 Saturation 97 97 99 Oxygen O2 Source Room air - EKG (time done) 1254 EKG releavant findings:: EKG personally interpreted by author of this note. Relevant findings are: Atrial fibrillation with rate 41 bpm. Left axis deviation. Left anterior fascicular block noted. Normal QRS and QTc intervals. No ST segment elevations or T wave inversions. - Labs Labs: Laboratory Tests 08/05/23 08/05/23 12:51 12:51 WBC 7.8 RBC 3.84 L Hgb 11.8 L Hct 35.3 L MCV 91.9 MCH 30.7 MCHC 33.4 RDW 13.8 Plt Count 146 MPV 12.3 H Neut # (Auto) 5.0 Lymph # (Auto) 1.9 [place] # (Auto) 0.8 Eos # (Auto) 0.1 Baso # (Auto) 0.1 Absolute Nucleated RBC 0.00 Nucleated RBC % 0.0 Sodium 138 Potassium 4.1 Chloride 108 Carbon Dioxide 25 Anion Gap 5.0 L BUN 17 Creatinine 0.9 Estimated GFR (MDRD) 80 L Glucose 127 H Calcium 9.5 Total Bilirubin 0.8 AST 23 ALT 11 Alkaline Phosphatase 65 Total Protein 6.2 L Albumin 4.0 Globulin 2.2 Albumin/Globulin Ratio 1.8 Lipase 10 L PD Medical Decision Making - ED course Complexity details: reviewed results, d/w patient, d/w family ED course: Patient 88-year-old male presenting to the emergency department after fall at home on Coumadin. Past medical significant for severe dementia. Comes accompanied by who is primary regional geodetic advisor. Exact events are uncertain as patient is unable to provide an accurate history but it is likely that he fell while using the treadmill at home. No obvious indications of trauma. CT head and C-spine nonacute. Patient did not have notable tenderness along his left-sided chest wall however family reported that he was complaining of some discomfort in this area. I obtained x-ray which was similarly negative for acute traumatic injury. While in the emergency department patient became acutely nauseous and had 1 episode of emesis. Was given ondansetron. EKG obtained demonstrated rate controlled A-fib. Of note patient's EKG did demonstrate a rate of 41 bpm however upon reevaluation patient's heart rate was more consistently in the mid 50s which is consistent with his baseline after chart review. He does take beta-blockade for rate control in the setting of known atrial fibrillation. Labs obtained were similarly reassuring. After approximately 30 minutes of the department on reevaluation he reported feeling significantly better. He ambulated throughout the department without difficulty and was no longer demonstrating any symptoms of nausea or lightheadedness. At this time will discharge for follow-up with primary care as needed. Provided ondansetron starter pack for use at home as needed. Discussed return precautions with the patient's prior to discharge. Departure - Departure Disposition: Home, Self Care Clinical Impression: Chronic anticoagulation Fall Qualifiers: Encounter type: initial encounter Qualified Code(s): W19.XXXA - Unspecified fall, initial encounter Dementia Qualifiers: Dementia type: unspecified type Dementia severity: severe Dementia behavioral or psychological symptom: unspecified whether behavioral, psychotic, or mood disturbance or anxiety Qualified Code(s): F03.C0 - Unspecified dementia, severe, without behavioral disturbance, psychotic disturbance, mood disturbance, and anxiety Comments: Thank you for allowing us to care for you today [facility]. The imaging performed today including the CT scan of your head, cervical spine and x-rays did not show any dangerous or life-threatening injury. Please get plenty of rest and drink plenty fluids over the course the next few days. If it anytime you have new or worsening symptoms please not hesitate to return. Forms: PCP List Discharge Date/Time: 08/05/23 14:09
--- NOTE | 2023-08-05 11:34 | CT Report ---
PROCEDURE: HEAD WO INDICATIONS: GLF TECHNIQUE: Noncontrast 4.5 mm thick angled axial sections acquired from the foramen magnum to the vertex. For r adiation dose reduction, the following was used: automated exposure control, adjustment of mA and/or kV according to patient size. COMPARISON: 06/08/2023. Correlation is made with the accompanying cervical spine CT. FINDINGS: Image quality: Excellent. CSF spaces: Basal cisterns are patent. No extra-axial fluid collections. Ventricles are normal in size and shape. Brain: No midline shift. No intracranial masses or hemorrhage. Murguia-white matter interface is norm al. Skull and face: Calvarium and visualized facial bones are intact, without suspicious lesions. Sinuses: Focal opacification can be seen involving the posterior left ethmoid air cells. Visualized sinuses and mastoids are otherwise clear. IMPRESSION: No intracranial hemorrhage is seen. No acute intracranial pathology. Reviewed by: Manny Jaeger MD on 08/05/2023 10:32 AM [facility] Approved by: Manny Jaeger MD on 08/05/2023 10:32 AM [facility] Station ID: [id number]
--- NOTE | 2023-08-05 11:36 | CT Report ---
PROCEDURE: CERVICAL SPINE WO INDICATIONS: GLF TECHNIQUE: Noncontrast 3 mm thick sections acquired from the skull base to the T4 level. Sagittal and coronal r eformats were then constructed. For radiation dose reduction, the following was used: automated exp osure control, adjustment of mA and/or kV according to patient size. COMPARISON: 02/26/2023 FINDINGS: Image quality: Excellent. Bones: No fractures or dislocations. Visualized superior ribs are intact. Anterior fixation hardware can be seen at the C4-C5 level, which appears intact. Focal degenerative change can be seen involving the C1-C2 interface anteriorly. Moderate disc space n arrowing is seen at C3-C4, with moderate disc space narrowing seen at C5-C6. Moderate to severe disc space narrowing is seen at C6-C7. Minimal anterolisthesis is again seen at C7-T1. Soft tissues: Prevertebral soft tissues are normal in thickness. No paravertebral hematomas. No ap ical pneumothoraces. IMPRESSION: Negative for acute fracture. Multiple levels of degenerative change are seen, which are worst at the C6-C7 level. Anterior fixation hardware is seen at C4-C5, which appears intact. Reviewed by: Manny Jaeger MD on 08/05/2023 10:34 AM [facility] Approved by: Manny Jaeger MD on 08/05/2023 10:34 AM [facility] Station ID: [id number]
--- NOTE | 2023-08-05 11:47 | XRAY Report ---
PROCEDURE: Ribs w/PA Chest 3+V LT INDICATIONS: GLF TECHNIQUE: 3 views of the left ribs were acquired, along with a single view chest. COMPARISON: Correlation is made with right rib plain film series, 04/20/2023. Correlation is also made with the accompanying imaging. FINDINGS: Surgical changes and devices: A percutaneously placed aortic valve prosthesis can be seen. Bones and chest wall: A marker is placed upon the area of pain. At this site, no fractures are seen. No fractures or dislocations are seen elsewhere. No suspicious bony lesions. Age-appropriate degen erative changes are seen. The overlying soft tissues appear unremarkable. Lungs and pleura: No pleural effusions or pneumothorax. Lungs appear clear. Mediastinum: The aorta is prominent and tortuous. The cardiac contours are within normal limits. IMPRESSION: No displaced rib fracture or pneumothorax can be seen by plain film. Postoperative and degenerative changes are seen. Reviewed by: Manny Jaeger MD on 08/05/2023 10:46 AM [facility] Approved by: Manny Jaeger MD on 08/05/2023 10:46 AM [facility] Station ID: [id number]
[2023-08-05] MEDS ORDERED: ONDANSETRON 4 MG/2 ML VIAL IVP STA (12:44)
[2023-08-05 13:09] LABS: BASOPHILS # (AUTO) 0.1 10^3/uL (0.0-0.1); BASOPHILS % (AUTO) 0.8 %; EOSINOPHILS # (AUTO) 0.1 10^3/uL (0.0-0.7); EOSINOPHILS % (AUTO) 1.1 %; HCT - HEMATOCRIT 35.3 % (42.0-52.0); HGB - HEMOGLOBIN 11.8 g/dL (14.0-18.0); LYMPHOCYTES # (AUTO) 1.9 10^3/uL (1.5-3.5); LYMPHOCYTES % (AUTO) 24.1 %; MEAN CORPUSCULAR HEMOGLOBIN 30.7 pg (27.0-31.0); MEAN CORPUSCULAR HGB CONC 33.4 g/dL (32.0-36.0); MEAN CORPUSCULAR VOLUME 91.9 fL (80.0-94.0); MEAN PLATELET VOLUME 12.3 fL (7.4-11.4); MONOCYTES # (AUTO) 0.8 10^3/uL (0.0-1.0); MONOCYTES % (AUTO) 9.8 %; NEUTROPHILS % (AUTO) 63.8 %; PLT - PLATELET COUNT 146 10^3/uL (130-450); RED BLOOD COUNT 3.84 10^6/uL (4.70-6.10); RED CELL DISTRIBUTION WIDTH 13.8 % (12.0-15.0); WHITE BLOOD COUNT 7.8 x10^3/uL (4.8-10.8)
[2023-08-05 13:24] LABS: ALBUMIN/GLOBULIN RATIO 1.8 (1.0-2.2); BILIRUBIN,TOTAL 0.8 mg/dL (0.2-1.0); CALCIUM 9.5 mg/dL (8.5-10.3); CREATININE 0.9 mg/dL (0.6-1.3); POTASSIUM 4.1 mmol/L (3.5-4.5); TOTAL PROTEIN 6.2 g/dL (6.4-8.9)
[2023-08-05] MEDS ORDERED: ONDANSETRON ODT 4 MG Prepack 2 TL PRN (13:50)
[2023-08-05 14:10] VITALS: BP 137/82; O2SAT 99
== END 2023-08-05 14:09 | disposition home or self-care (01) ==
LOC: ED 10:22
DX: Z04.3 Encounter for examination and observation following other accident (principal); R11.2 Nausea with vomiting, unspecified; I48.91 Unspecified atrial fibrillation; Z79.01 Long term (current) use of anticoagulants; F03.C0 Unspecified dementia, severe, without behavioral disturbance, psychotic disturbance, mood disturbance, and anxiety
CPT/HCPCS: 36415; 80053; 83690; 85025; 93005; 96374; 99283

== ENCOUNTER 2023-11-05 11:14 | Outpatient (CLI) | payer MEDICARE, OTHER | END 2023-11-05 23:59 | disposition EMS.NT | LOC: EMS 11:14 | DX: R40.4 Transient alteration of awareness (principal) ==

== ENCOUNTER 2023-11-05 17:35 | Emergency (ER) | payer MEDICARE, OTHER ==
[2023-11-05 18:32] LABS: BASOPHILS # (AUTO) 0.1 10^3/uL (0.0-0.1); EOSINOPHILS # (AUTO) 0.1 10^3/uL (0.0-0.7); HCT - HEMATOCRIT 39.6 % (42.0-52.0); HGB - HEMOGLOBIN 12.6 g/dL (14.0-18.0); LYMPHOCYTES # (AUTO) 1.4 10^3/uL (1.5-3.5); LYMPHOCYTES % (AUTO) 23.2 %; MEAN CORPUSCULAR HEMOGLOBIN 29.6 pg (27.0-31.0); MEAN CORPUSCULAR HGB CONC 31.8 g/dL (32.0-36.0); MEAN CORPUSCULAR VOLUME 93.2 fL (80.0-94.0); MEAN PLATELET VOLUME 11.9 fL (7.4-11.4); MONOCYTES # (AUTO) 0.6 10^3/uL (0.0-1.0); MONOCYTES % (AUTO) 9.3 %; NEUTROPHILS # (AUTO) 3.9 10^3/uL (1.5-6.6); NEUTROPHILS % (AUTO) 65.3 %; PLT - PLATELET COUNT 146 10^3/uL (130-450); RED BLOOD COUNT 4.25 10^6/uL (4.70-6.10); RED CELL DISTRIBUTION WIDTH 14.3 % (12.0-15.0)
[2023-11-05 18:50] LABS: ALBUMIN/GLOBULIN RATIO 1.5 (1.0-2.2); BILIRUBIN,TOTAL 0.7 mg/dL (0.2-1.0); CREATININE 0.9 mg/dL (0.6-1.3); POTASSIUM 4.8 mmol/L (3.5-4.5); TOTAL PROTEIN 6.6 g/dL (6.4-8.9)
[2023-11-05 18:57] LABS: TROPONIN I HIGH SENSITIVITY 58.2 ng/L (2.3-19.7)
[2023-11-05 19:09] LABS: INR 2.5 (0.8-1.2); PT - PROTHROMBIN TIME 25.8 secs (9.9-12.6)
--- NOTE | 2023-11-05 19:20 | ED Physician Documentation ---
PD HPI SYNCOPE - Stated complaint Stated Complaint: SYNCOPE - Chief complaint Chief Complaint: Cardiac - Additional information Additional information: HPI is from patient's who is in ED at patient's bedside. Patient cannot reliably contribute to HPI/ROS due to AMS (patient's says that patient is at his baseline mental status). At approximately 11 AM today, patient was sitting in a chair at home. His was in the same room at the time of the event. Patient had sudden onset of unresponsiveness, manifest as head tilting back, visible pallor of the skin. The is uncertain if he completely lost consciousness, "maybe for a few seconds". He seems to be having hypopnea and, at times, even apnea for as long as 30 seconds per patient's . However, she noted the hypopnea/apnea because she immediately took patient's vital signs when this event occurred. She says the systolic blood pressure was in the 160s and the heart rate in the 40s. She says he has had a few similar episodes recently which resulted in outpatient EEG; per , the EEG was unremarkable. There was no seizure-like activity tonight and 's description does not sound c/w post-ictal phase. She says that within less than a minute, patient was awake and responding, grabbing at his shirt asking to have the shirt taken off (unclear why he was saying this). Patient's also notes significantly decreased p.o. intake including fluids since yesterday. PD PAST MEDICAL HISTORY - Past Medical History Past Medical History: Yes Cardiovascular: Atrial fibrillation GI: GERD : Other - Past Surgical History Past Surgical History: Yes General: Colonoscopy Ortho: Carpal Tunnel surgery - Present Medications Home Medications: Ambulatory Orders Medication Instructions Recorded Confirmed Donepezil [Aricept] 5 mg PO HS 02/12/23 05/31/23 OLANZapine ODT [Zyprexa Odt] 5 mg SL BID 02/12/23 05/31/23 Warfarin [Coumadin] 5 mg PO DAILY 02/12/23 05/31/23 carvediloL [Coreg] 3.125 mg PO DAILY 02/12/23 05/31/23 - Allergies Allergies/Adverse Reactions: Allergies Allergy/AdvReac Type Severity Reaction Status Date / Time hazelnut Allergy Severe Anaphylaxis Verified 11/05/23 17:59 nitroglycerin AdvReac Intermediate low b/p Verified 11/05/23 17:59 hydromorphone AdvReac Unknown Verified 11/05/23 17:59 - Social History Does the pt smoke?: No Smoking Status: Never smoker Does the pt drink ETOH?: Yes Does the pt have substance abuse?: No - Immunizations Immunizations are current?: Yes - POLST Patient has POLST: No PD ED PE NORMAL - Vitals Vital signs reviewed: Yes - General General: No acute distress, Well developed/nourished, Other (awake, alert, NAD. oriented to self) - HEENT HEENT: PERRL, EOMI, Moist mucous membranes - Neck Neck: Supple, no meningeal sign - Respiratory Respiratory: No respiratory distress, Clear bilaterally - Abdomen Abdomen: Soft, Non tender, Non distended - Derm Derm: Normal color, Warm and dry - Neuro Eye Opening: Spontaneous Motor: Obeys Commands Verbal: Confused GCS Score: 14 PD ED PE EXPANDED - Cardiac Cardiac: Kp, Irregularly irregular Results - Vitals Vitals: Vital Signs - 24 hr 11/05/23 11/05/23 11/05/23 17:55 19:29 19:30 Temperature 35.9 C L Heart Rate 51 L 61 62 Respiratory 20 15 15 Rate Blood Pressure 148/64 H 154/69 H 148/68 H O2 Saturation 99 95 95 11/05/23 11/05/23 11/05/23 20:00 20:30 21:00 Temperature Heart Rate 56 L 58 L 56 L Respiratory 14 16 12 Rate Blood Pressure 139/59 H 134/55 H 134/63 H O2 Saturation 95 97 95 11/05/23 11/05/23 11/05/23 21:30 22:00 22:15 Temperature Heart Rate 58 L 55 L 55 L Respiratory 15 14 Rate Blood Pressure 149/65 H 135/60 H O2 Saturation 94 94 94 Oxygen O2 Source Room air - EKG (time done) No standard instances EKG releavant findings:: EKG personally interpreted by author of this note. Relevant findings are: Rate: Rate (enter#) (51) Rhythm: Atrial fibrillation [place]: LAD Ischemia: Q waves (V2, V3), Non specific changes (minimal ST elevations V2, V3 (noted on previous EKG as well)) Compare to prior EKG: Unchanged from prior EKG (no significant change vs 08/05/23 including V2, V3 Q waves and ST abnormalities) - Labs Labs: Laboratory Tests 11/05/23 11/05/23 11/05/23 17:46 18:23 18:23 WBC 6.0 RBC 4.25 L Hgb 12.6 L Hct 39.6 L MCV 93.2 MCH 29.6 MCHC 31.8 L RDW 14.3 Plt Count 146 MPV 11.9 H Neut # (Auto) 3.9 Lymph # (Auto) 1.4 L Antelope # (Auto) 0.6 Eos # (Auto) 0.1 Baso # (Auto) 0.1 Absolute Nucleated RBC 0.00 Nucleated RBC % 0.0 PT INR Sodium 137 Potassium 4.8 H Chloride 107 Carbon Dioxide 27 Anion Gap 3.0 L BUN 19 Creatinine 0.9 Estimated GFR (MDRD) 80 L Glucose 90 POC Whole Bld Glucose 87 Calcium 10.0 Total Bilirubin 0.7 AST 23 ALT 12 Alkaline Phosphatase 68 Troponin I High Sens 58.2 H* Total Protein 6.6 Albumin 4.0 Globulin 2.6 Albumin/Globulin Ratio 1.5 Lipase 11 11/05/23 11/05/23 18:57 19:56 WBC RBC Hgb Hct MCV MCH MCHC RDW Plt Count MPV Neut # (Auto) Lymph # (Auto) Antelope # (Auto) Eos # (Auto) Baso # (Auto) Absolute Nucleated RBC Nucleated RBC % PT 25.8 H INR 2.5 H Sodium Potassium Chloride Carbon Dioxide Anion Gap BUN Creatinine Estimated GFR (MDRD) Glucose POC Whole Bld Glucose Calcium Total Bilirubin AST ALT Alkaline Phosphatase Troponin I High Sens 56.1 H* Total Protein Albumin Globulin Albumin/Globulin Ratio Lipase - Rads (name of study) No standard instances Relevant Findings:: Prelim report reviewed, See rad report PD Medical Decision Making - ED course Complexity details: reviewed results, re-evaluated patient, considered differential, d/w patient, d/w family ED course: Hemoglobin is slightly below normal (12.6), but no other notable abnormalities on CBC. INR is therapeutic (2.5). Mild hyperkalemia (4.8). High-sensitivity troponin is 58.2, but a 2-hour repeat is 56.1. CXR notable for small right pleural effusion; this would not account for signs/symptoms in this case and thus is likely incidental finding. Patient is given 1 L normal saline IV bolus. On reevaluation, patient is more awake and alert than on initial evaluation. He is smiling at times. I discussed results with patient and his . Patient remains confused but says he is at his baseline mental status. The cause of tonight's episode is not apparent at this time. He is noted to have bradycardia during ED stay with heart rates as low as mid-40s; however, he is normotensive during ED stay even with these lower heart rates. I advised his to contact patient's cocktail waitress to arrange for expedited follow-up if possible and to inquire as to whether change in medications (specifically carvedilol) would be appropriate given his bradycardia Departure - Departure Disposition: Home, Self Care Clinical Impression: Syncope Qualifiers: Syncope type: unspecified Qualified Code(s): R55 - Syncope and collapse Condition: Good Instructions: ED Fainting Unkn Cause Comments: There were no particularly concerning findings on tonight's tests and none of the results were specifically diagnostic. The potassium level was slightly above the normal range but not to a concerning extent. A cardiac enzyme blood test was slightly above the normal range, but a 2-hour repeat of the cardiac enzyme test showed that it was decreasing which is very reassuring and would suggest that the elevated cardiac blood test is non- contributory (in other words, likely a coincident finding and not related to these events that he is having). Contact the primary care provider as well as the cocktail waitress for follow-up as well as regarding whether the cocktail waitress recommends changing the dose of the blood pressure medication (carvedilol). Forms: PCP List Discharge Date/Time: 11/05/23 22:15
[2023-11-05] MEDS: SODIUM CHLORIDE 0.9% 1,000 ML IV STA (20:03)
--- NOTE | 2023-11-05 21:43 | XRAY Report ---
PROCEDURE: Chest 2V INDICATIONS: syncope TECHNIQUE: 2 views of the chest were acquired. COMPARISON: None. FINDINGS: Surgical changes and devices: Prosthetic valve. Lungs and pleura: Small right pleural effusion. Mediastinum: Mediastinal contours appear normal. Heart size is enlarged. Bones and chest wall: No suspicious bony lesions. Overlying soft tissues appear unremarkable. IMPRESSION: Small right pleural effusion. Reviewed by: Martir Duran MD on 11/05/2023 9:42 PM PDT Approved by: Martir Duran MD on 11/05/2023 9:42 PM PDT Station ID: [id number]
[2023-11-05 21:50] VITALS: O2SAT 94
[2023-11-05 22:30] VITALS: BP 135/60
== END 2023-11-05 22:15 | disposition home or self-care (01) ==
LOC: ED 17:35
DX: R55 Syncope and collapse (principal); R00.1 Bradycardia, unspecified; I48.91 Unspecified atrial fibrillation; Z79.899 Other long term (current) drug therapy; Z79.01 Long term (current) use of anticoagulants
CPT/HCPCS: 36415; 80053; 83690; 84484; 85025; 85610; 93005; 96360; 99284

== ENCOUNTER 2024-01-14 08:00 | Outpatient (CLI) | payer MEDICARE, OTHER ==
--- NOTE | 2024-01-14 17:22 | XRAY Report ---
PROCEDURE: Chest 2V INDICATIONS: HEMOPTYSIS TECHNIQUE: 2 views of the chest were acquired. COMPARISON: 11/05/2023, 04/20/2023. FINDINGS: Surgical changes and devices: Percutaneous aortic valve. Cervical fusion hardware. Lungs and pleura: Continued presence of a subpulmonic right pleural effusion with compressive right basilar atelectasis. The fluid is mild to moderate. It is not significantly changed from the recent p rior study. No airspace consolidation or pulmonary edema. Mediastinum: Mediastinal contours appear normal. Mild cardiomegaly. Bones and chest wall: No suspicious bony lesions. Overlying soft tissues appear unremarkable. IMPRESSION: 1. Cardiomegaly, percutaneous aortic valve 2. Continued mild to moderate subpulmonic right pleural effusion with compressive right basilar atele ctasis. Reviewed by: Perfecto Logan MD on 01/14/2024 5:21 PM PDT Approved by: Perfecto Logan MD on 01/14/2024 5:21 PM PDT Station ID: [id number]
== END 2024-01-14 23:59 | disposition home or self-care (01) ==
LOC: DI.S 08:00
PROVIDERS: ATTEND Emergency Medicine
DX: J90 Pleural effusion, not elsewhere classified (principal); J98.11 Atelectasis; I51.7 Cardiomegaly; R04.2 Hemoptysis

== ENCOUNTER 2024-02-23 19:04 | Emergency (ER) | payer MEDICARE, OTHER ==
--- NOTE | 2024-02-23 19:27 | ED Physician Documentation ---
PD HPI MAJOR TRAUMA - Stated complaint Stated Complaint: FELL,HIT HEAD - Chief complaint Chief Complaint: Trauma Ext - History obtained from History obtained from: Patient, Family - Additional information Additional information: 88-year-old gentleman with history of TAVR and A-fib on warfarin with last INR 2.5 at 6 days ago. He had a trip and fall over a curb landing forward hitting his head without loss of consciousness. Also has injuries of the left hand and scrapes on both knees. He has a mild headache. Does have some scrapes and wipes his last tetanus was in 2019. He does have mild dementia and much of the history is from the . PD PAST MEDICAL HISTORY - Past Medical History Past Medical History: Yes Cardiovascular: Atrial fibrillation Neuro: Dementia GI: GERD : Other - Past Surgical History Past Surgical History: Yes General: Colonoscopy Ortho: Carpal Tunnel surgery - Present Medications Home Medications: Ambulatory Orders Medication Instructions Recorded Confirmed Donepezil [Aricept] 5 mg PO HS 02/12/23 05/31/23 OLANZapine ODT [Zyprexa Odt] 5 mg SL BID 02/12/23 05/31/23 Warfarin [Coumadin] 5 mg PO DAILY 02/12/23 05/31/23 carvediloL [Coreg] 3.125 mg PO DAILY 02/12/23 05/31/23 - Allergies Allergies/Adverse Reactions: Allergies Allergy/AdvReac Type Severity Reaction Status Date / Time hazelnut Allergy Severe Anaphylaxis Verified 11/05/23 17:59 nitroglycerin AdvReac Intermediate low b/p Verified 11/05/23 17:59 hydromorphone AdvReac Unknown Verified 11/05/23 17:59 - Social History Does the pt smoke?: No Smoking Status: Never smoker Does the pt drink ETOH?: Yes Does the pt have substance abuse?: No - Immunizations Immunizations are current?: Yes - POLST Patient has POLST: No PD ED PE NORMAL - Vitals Vital signs reviewed: Yes - General General: Alert and oriented X 3, No acute distress - HEENT HEENT: PERRL, EOMI, Other (Shallow abrasions left forehead) - Neck Neck: Other (Mild diffuse C-spine tenderness) - Extremities Extremities: Other (Skin tear on the dorsum of the left hand over the first metacarpal. Shallow abrasions of both knees without significant tenderness or limited range of motion. says gait is normal.) - Neuro Neuro: Normal speech Eye Opening: Spontaneous Motor: Obeys Commands Verbal: Oriented GCS Score: 15 Results - Vitals Vitals: Vital Signs - 24 hr 02/23/24 02/23/24 02/23/24 19:12 19:30 20:00 Temperature 36.3 C L Heart Rate 56 L 55 L 62 Respiratory 16 16 16 Rate Blood Pressure 112/75 111/55 L 116/58 L O2 Saturation 98 93 95 02/23/24 20:53 Temperature Heart Rate 52 L Respiratory 16 Rate Blood Pressure 137/57 H O2 Saturation 97 Oxygen O2 Source Room air - Labs Labs: Laboratory Tests 02/23/24 02/23/24 02/23/24 19:22 19:22 19:22 WBC 6.4 RBC 3.90 L Hgb 11.8 L Hct 36.1 L MCV 92.6 MCH 30.3 MCHC 32.7 RDW 14.3 Plt Count 127 L MPV 12.3 H Neut # (Auto) 4.1 Lymph # (Auto) 1.3 L [place] # (Auto) 0.7 Eos # (Auto) 0.3 Baso # (Auto) 0.0 Absolute Nucleated RBC 0.00 Nucleated RBC % 0.0 PT 31.3 H INR 3.1 H Sodium 137 Potassium 4.3 Chloride 105 Carbon Dioxide 25 Anion Gap 7.0 BUN 20 Creatinine 1.2 Estimated GFR (MDRD) 57 L Glucose 168 H Calcium 9.6 Total Bilirubin 1.1 H AST 21 ALT 11 Alkaline Phosphatase 70 Total Protein 6.8 Albumin 4.1 Globulin 2.7 Albumin/Globulin Ratio 1.5 - Rads (name of study) CT of the head and cervical spine as well as left hand x-ray were negative for acute traumatic findings. Relevant Findings:: Final report received, EMP independent interpretation of test Procedures - Laceration (location) L wrist Length in cm: 4 Wound type: Curved, Flap, Superficial Wound preparation: Irrigated copiously NS Skin layer closure: Dermabond, Steri strips Other: Tetanus UTD PD Medical Decision Making - ED course ED course: 88-year-old gentleman had a trip and fall. He is on warfarin and 6 days ago his INR was 2.5. He hit his head, and has a decent skin tear on the left hand and deep abrasion on the left knee. He is up-to-date on tetanus per the . His wounds were cleansed and the left wrist I was reasonable to reapproximate the skin tear and then closed it with Steri-Strips and Dermabond. Relevant imaging was negative. CBC showing mild anemia, relatively stable from prior values. CMP unremarkable. INR 3.1, slightly supratherapeutic. Per the his goal INR is in a range from 2-3 and advised a half dose of warfarin tonight. The patient and family were counseled as to the diagnosis and need for follow-up. I counseled the patient with regard to signs and symptoms that would necessitate an urgent reevaluation in the emergency department. They understand they are welcome to return at any time if worse or if not improving as expected. This document was made in part using voice recognition software. While efforts are made to proofread this documents, sound alike and grammatical errors may occur. Departure - Departure Disposition: 01 Home, Self Care Clinical Impression: Supratherapeutic INR Head injury Qualifiers: Encounter type: initial encounter Qualified Code(s): S09.90XA - Unspecified injury of head, initial encounter Condition: Good Record reviewed to determine appropriate education?: Yes Instructions: ED Head Injury Closed, ED Laceration Ext Skin Glue Comments: For the wounds, soap and water is fine and then keeping covered with dressing. Return for any signs of infection. His INR tonight was 3.1, slightly elevated, recommend half dose of warfarin tonight and recheck in a few days. Forms: PCP List
[2024-02-23 19:33] LABS: BASOPHILS % (AUTO) 0.6 %; EOSINOPHILS # (AUTO) 0.3 10^3/uL (0.0-0.7); EOSINOPHILS % (AUTO) 4.1 %; HCT - HEMATOCRIT 36.1 % (42.0-52.0); HGB - HEMOGLOBIN 11.8 g/dL (14.0-18.0); LYMPHOCYTES # (AUTO) 1.3 10^3/uL (1.5-3.5); LYMPHOCYTES % (AUTO) 20.2 %; MEAN CORPUSCULAR HEMOGLOBIN 30.3 pg (27.0-31.0); MEAN CORPUSCULAR HGB CONC 32.7 g/dL (32.0-36.0); MEAN CORPUSCULAR VOLUME 92.6 fL (80.0-94.0); MEAN PLATELET VOLUME 12.3 fL (7.4-11.4); MONOCYTES # (AUTO) 0.7 10^3/uL (0.0-1.0); MONOCYTES % (AUTO) 10.7 %; NEUTROPHILS # (AUTO) 4.1 10^3/uL (1.5-6.6); NEUTROPHILS % (AUTO) 64.1 %; PLT - PLATELET COUNT 127 10^3/uL (130-450); RED CELL DISTRIBUTION WIDTH 14.3 % (12.0-15.0); WHITE BLOOD COUNT 6.4 x10^3/uL (4.8-10.8)
[2024-02-23 19:41] LABS: INR 3.1 (0.8-1.2); PT - PROTHROMBIN TIME 31.3 secs (9.9-12.6)
[2024-02-23 19:46] LABS: ALBUMIN 4.1 g/dL (3.2-5.5); ALBUMIN/GLOBULIN RATIO 1.5 (1.0-2.2); BILIRUBIN,TOTAL 1.1 mg/dL (0.2-1.0); CALCIUM 9.6 mg/dL (8.5-10.3); CREATININE 1.2 mg/dL (0.6-1.3); POTASSIUM 4.3 mmol/L (3.5-4.5); TOTAL PROTEIN 6.8 g/dL (6.4-8.9)
--- NOTE | 2024-02-23 20:06 | CT Report ---
PROCEDURE: Head WO INDICATIONS: head inj TECHNIQUE: Noncontrast 4.5 mm thick angled axial sections acquired from the foramen magnum to the vertex. For r adiation dose reduction, the following was used: automated exposure control, adjustment of mA and/or kV according to patient size. COMPARISON: CT cervical spine 02/23/2024, CT head 08/05/2023 FINDINGS: Image quality: Excellent. The ventricular system and cortical sulci demonstrate atrophy, consistent for patient's stated age. There are areas of hypodensity in the periventricular and subcortical white matter. There is no acut e intra or extra-axial fluid collection. No acute hemorrhage, mass lesion or midline shift. Brainst em is unremarkable. Globes are symmetrical. Sinuses demonstrate minimal scattered mucosal thickening particularly within the ethmoid air cells. Osseous structures are intact. IMPRESSION: 1. No acute intracranial process. 2. Moderate atrophy and chronic microvascular ischemic changes. Reviewed by: Taylor Stanton MD on 02/23/2024 8:05 PM PDT Approved by: Taylor Stanton MD on 02/23/2024 8:05 PM PDT Station ID: [id number]
--- NOTE | 2024-02-23 20:10 | CT Report ---
PROCEDURE: Cervical Spine WO INDICATIONS: head inj TECHNIQUE: Noncontrast 3 mm thick sections acquired from the skull base to the T4 level. Sagittal and coronal r eformats were then constructed. For radiation dose reduction, the following was used: automated exp osure control, adjustment of mA and/or kV according to patient size. COMPARISON: CT cervical spine 08/05/2023, chest x-ray FINDINGS: Image quality: Excellent. Bones: No fractures or dislocations. Visualized superior ribs are intact. Anterior fusion at C4-5. Hardware is intact without evidence of hardware fracture or periprosthetic lucency to suggest loosen ing. Multilevel degenerative changes are present. Soft tissues: Prevertebral soft tissues are normal in thickness. No paravertebral hematomas. Partia lly visualized right pleural effusion. This is present on prior chest x-ray of 01/14/2024 IMPRESSION: Multilevel degenerative changes without visualized fracture. Reviewed by: Taylor Stanton MD on 02/23/2024 8:08 PM PDT Approved by: Taylor Stanton MD on 02/23/2024 8:08 PM PDT Station ID: [id number]
--- NOTE | 2024-02-23 20:28 | XRAY Report ---
PROCEDURE: Hand 3+V LT INDICATIONS: hand inj TECHNIQUE: 3 views of the hand(s) acquired. COMPARISON: None. FINDINGS: Bones: No fractures or dislocations. No suspicious bony lesions. 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 There is a subchondral sclerosis and periarticu lar osteophytes are present. Soft tissues: No suspicious soft tissue calcifications or masses. IMPRESSION: Moderate to severe arthritic changes particularly prominent at the first CMC joint. No visualized acute fracture or dislocation. However, occult injury cannot be excluded. Recommend mary rt interval imaging follow-up in 7-10 days as clinically indicated for additional evaluation. Reviewed by: Taylor Stanton MD on 02/23/2024 8:27 PM PDT Approved by: Taylor Stanton MD on 02/23/2024 8:27 PM PDT Station ID: [id number]
[2024-02-23 21:03] VITALS: BP 137/57; O2SAT 97
== END 2024-02-23 21:00 | disposition home or self-care (01) ==
LOC: ED 19:04
DX: S00.81XA Abrasion of other part of head, initial encounter (principal); S80.212A Abrasion, left knee, initial encounter; S80.211A Abrasion, right knee, initial encounter; S61.412A Laceration without foreign body of left hand, initial encounter; S09.90XA Unspecified injury of head, initial encounter; W18.09XA Striking against other object with subsequent fall, initial encounter; R79.1 Abnormal coagulation profile; I48.91 Unspecified atrial fibrillation; Z79.01 Long term (current) use of anticoagulants
CPT/HCPCS: 12002; 36415; 80053; 85025; 85610; 99283; 99284

== ENCOUNTER 2024-02-26 08:00 | Outpatient (CLI) | payer MEDICARE, OTHER ==
--- NOTE | 2024-02-27 11:41 | XRAY Report ---
PROCEDURE: Wrist 3+V LT INDICATIONS: PAIN IN LEFT WRIST TECHNIQUE: 4 views of the wrist were acquired. COMPARISON: Left hand radiograph dated 02/23/2024. FINDINGS: Bones: No fractures or dislocations. Moderate first CMC joint and scaphotrapezial joint osteoarthrit ic changes are seen with significant joint space narrowing, subchondral sclerosis and marginal osteop hyte formation. No suspicious bony lesions. Soft tissues: No suspicious soft tissue calcifications or masses. 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 No fracture or dislocation. Reviewed by: Damir Longo MD on 02/27/2024 11:40 AM PDT Approved by: Damir Longo MD on 02/27/2024 11:40 AM PDT Station ID: [id number]
--- NOTE | 2024-02-27 11:43 | XRAY Report ---
PROCEDURE: Hand 3+V LT INDICATIONS: PAIN IN LEFT HAND TECHNIQUE: 3 views of the hand(s) acquired. COMPARISON: 02/23/2024. FINDINGS: Bones: No fractures or dislocations. Moderate osteoarthritic changes throughout left hand and wrist joints are seen most notably involving second through fifth interphalangeal joints and first CMC join t. 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 Radiolucencies are seen in the lunate, scaphoid, and trapezium as well as radial aspect of third metacarpal head. No suspicious bony lesions. Soft tissues: No suspicious soft tissue calcifications or masses. 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 Additional radiolucencies involving carpal bones and third metacarpal head which may represent erosion secondary to inflammatory arthropathy. No acute left hand fracture or dislocation. Reviewed by: Damir Longo MD on 02/27/2024 11:42 AM PDT Approved by: Damir Longo MD on 02/27/2024 11:42 AM PDT Station ID: [id number]
== END 2024-02-26 23:59 | disposition home or self-care (01) ==
LOC: DI.S 08:00
PROVIDERS: ATTEND Registered Nurse
DX: M19.032 Primary osteoarthritis, left wrist (principal); M19.042 Primary osteoarthritis, left hand

== ENCOUNTER 2024-03-18 11:01 | Emergency (ER) | payer MEDICARE, OTHER ==
--- NOTE | 2024-03-18 11:21 | ED Physician Documentation ---
History of Present Illness - Stated complaint Stated Complaint: GLF - Chief complaint Chief Complaint: Trauma Hd/Nk - Additonal information Additional information: 88-year-old male with history of A-fib, advanced dementia, GERD [facility] fall from toilet that happened around 5 AM. Patient is here with his she said that last night he was little more agitated than normal which she says is normal Per the patient's he tends to wax and wane in terms of having good nights and bad nights. Patient apparently went to the bathroom around 5 And fell asleep in the toilet which is also very normal for the patient and fell onto his right forehead. Patient's tried to get him to go to the hospital earlier this morning but he is quite agitated and refused today they came in for routine lung scan and she asked the primary care provider to add on a head CT for further evaluation of his head after having the fall and he sent her here to the emergency department. Because of patient's A-fib he is anticoagulated on Coumadin. At baseline patient is very lethargic and sleepy especially after a busy day and they say that yesterday was a very busy day for the patient. He has right wrist swelling and has been complaining of right wrist pain and there is a superficial abrasion/skin tear over the right radial aspect of the wrist he also has some bruising to his forehead. He is able to tell me that his is sitting next to him as well as her name but he is unable to tell me where he is what year it is or who the president is. Patient's says that she has been trying to have discussions with patient's children they do not share children together about goals of care and possibly when considering transitioning him to comfort measures only given his advancing dementia. PD PAST MEDICAL HISTORY - Past Medical History Past Medical History: Yes Cardiovascular: Atrial fibrillation Respiratory: None Neuro: Dementia Endocrine/Autoimmune: None GI: GERD : Other HEENT: None Psych: None Musculoskeletal: None Derm: None - Past Surgical History Past Surgical History: Yes General: Colonoscopy Ortho: Carpal Tunnel surgery - Present Medications Home Medications: Ambulatory Orders Medication Instructions Recorded Confirmed Warfarin [Coumadin] 5 mg PO DAILY 02/12/23 03/18/24 carvediloL [Coreg] 3.125 mg PO DAILY 02/12/23 05/31/23 Amox/Clav 875/125 [Augmentin 1 tablet PO Q12H 5 Days #10 tablet 03/18/24 875/125 Tab] Azithromycin 250 mg PO DAILY 4 Days #4 tablet 03/18/24 OLANZapine [Zyprexa] 0.123 mg PO DAILY 03/18/24 - Allergies Allergies/Adverse Reactions: Allergies Allergy/AdvReac Type Severity Reaction Status Date / Time hazelnut Allergy Severe Anaphylaxis Verified 03/18/24 11:12 nitroglycerin AdvReac Intermediate low b/p Verified 03/18/24 11:12 hydromorphone AdvReac Unknown Verified 03/18/24 11:12 - Social History Does the pt smoke?: No Smoking Status: Never smoker Does the pt drink ETOH?: Yes Does the pt have substance abuse?: No - Immunizations Immunizations are current?: Yes - POLST Patient has POLST: No PD ED PE NORMAL - Vitals Vital signs reviewed: Yes - General General: No acute distress, Well developed/nourished (AOx1) - HEENT HEENT: PERRL, Other (Forehead bruising mostly to the left upper region) - Neck Neck: No bony TTP - Cardiac Cardiac: RRR - Respiratory Respiratory: No respiratory distress - Abdomen Abdomen: Normal bowel sounds - Derm Derm: Other (forhead bruising, right wrist swelling right wrist abrasion) - Extremities Extremities: No deformity, Other (right wrist swelling ) - Neuro Neuro: No motor deficit, No sensory deficit, Normal speech Eye Opening: Spontaneous Motor: Obeys Commands Verbal: Confused GCS Score: 14 Results - Vitals Vitals: Vital Signs - 24 hr 03/18/24 03/18/24 11:04 13:12 Temperature 36.3 C L Heart Rate 64 68 Respiratory 16 16 Rate Blood Pressure 127/53 L 148/93 H O2 Saturation 98 97 Oxygen O2 Source Room air - Labs Labs: Laboratory Tests 03/18/24 03/18/24 03/18/24 11:21 11:21 11:21 WBC 11.5 H RBC 3.98 L Hgb 12.2 L Hct 37.3 L MCV 93.7 MCH 30.7 MCHC 32.7 RDW 14.5 Plt Count 136 MPV 12.4 H Neut # (Auto) 9.0 H Lymph # (Auto) 1.2 L [place] # (Auto) 1.1 H Eos # (Auto) 0.1 Baso # (Auto) 0.0 Absolute Nucleated RBC 0.00 Nucleated RBC % 0.0 PT 30.4 H INR 3.0 H Sodium 136 Potassium 4.1 Chloride 104 Carbon Dioxide 29 Anion Gap 3.0 L BUN 18 Creatinine 1.1 Estimated GFR (MDRD) 63 L Glucose 96 Calcium 9.7 Magnesium 1.8 Total Bilirubin 1.4 H AST 25 ALT 13 Alkaline Phosphatase 80 Total Protein 6.4 Albumin 4.0 Globulin 2.4 Albumin/Globulin Ratio 1.7 Lipase < 10 L - Rads (name of study) Chest CT without Relevant Findings:: Final report received, EMP independent interpretation of test, Other (No pneumothorax or displaced rib fractures. Moderate pleural effusion. Patchy branching left basilar nodularity and consolidation concerning for pneumonia or aspiration.) Right wrist x-rays Relevant Findings:: Final report received, EMP independent interpretation of test, Other (Avulsion fragment dorsal to the triquetrum moderate degenerative changes widening of scapholunate interval implying ligament injury) Head CT without Relevant Findings:: Final report received, EMP independent interpretation of test, Other (No intracranial abnormalities or findings) Cervical spine without Relevant Findings:: Final report received, EMP independent interpretation of test, Other (No acute bony abnormalities no subluxation) PD Medical Decision Making - ED course ED course: 88-year-old male presents emergency department after experiencing a ground-level fall after falling asleep in the toilet this morning. Patient had a variety of different imaging complete for further evaluation. Head CT did not show any start of acute intracranial hemorrhages or abnormalities. He did have some bruising to his left forehead no open wounds no abrasions no bleeding. Cervical spine was also completed for further evaluation no subluxation or bony fractures or abnormality. Right wrist x-rays were also complete as patient does have tenderness to the right wrist skin tear. A Tegaderm was placed over the patient's right wrist from his that was removed with the nurse did clean it with normal saline and applied bacitracin with nonadhesive over the wound and x-rays reveal age indeterminant avulsion fragment dorsal to the triquetrium given that patient does have tenderness over this region we have placed him in a thumb spica and referred him to follow-up with Ortho outpatient. was taught how to change the bandage at home. Chest CT was also complete for further evaluation as patient has history of pleural effusions he is unable to contribute to much of history so wanted to make sure that we further evaluated possible recurrence of pleural effusion. He did have a moderate right sided pleural effusion nothing at this point in time that appears to need to be drained. He also had some patchy branching left basilar nodularity and consolidation. He also was coughing up blood he is on blood thinners but because of the CT findings and the hemoptysis we went ahead and treated patient for community-acquired pneumonia. He was given 500 mg of azithromycin here in the emergency department as well as Augmentin. Prescription of azithromycin and Augmentin was sent to his preferred pharmacy. He denies any further pain. Patient's is given very strict ER return precautions she did request for a POLST form so that she could discuss patient's CODE STATUS with his children and this was provided for the patient's . Return precautions given to the all questions answered patient is safe for discharge at this time. Departure - Departure Disposition: 01 Home, Self Care Clinical Impression: Avulsion fracture of right wrist, Ground-level fall, Skin tear, Pneumonia Instructions: Fx Wrist Tx, ED Splint Care Velcro Follow-Up: Curt Kimball MD [Provider Admit Priv/Credential] - Prescriptions: Amox/Clav 875/125 [Augmentin 875/125 Tab] 1 tablet PO Q12H 5 Days #10 tablet Azithromycin 250 mg PO DAILY 4 Days #4 tablet Comments: Thank you for trusting us with your care. We have completed a CT of your head and neckAnd are not seeing any acute abnormal findings at this point in time. Complete x-rays of your left wrist and it does appear that there is a possible avulsion fracture. I want you to follow-up with Ortho outpatient I have given you their contact information for you make an appointment with them and hopefully they will be able to get you in within the next few weeks. In the meantime keep the thumb spica splint on change the dressingOnce daily he does he does have a skin tear underneath the splint that we want to be watching for signs and symptoms of infection. Please come back to the ER if he started to have any redness swelling to that right wrist that appears to be infection with purulent drainage or any fevers or chills. If he starts to have any change in his neurological status please also come back to the emergency department for reevaluation. Wishing you the best moving forward with navigating your 's dementia. Forms: PCP List Discharge Date/Time: 03/18/24 14:54
[2024-03-18 11:38] LABS: BASOPHILS % (AUTO) 0.3 %; EOSINOPHILS # (AUTO) 0.1 10^3/uL (0.0-0.7); EOSINOPHILS % (AUTO) 1.1 %; HCT - HEMATOCRIT 37.3 % (42.0-52.0); HGB - HEMOGLOBIN 12.2 g/dL (14.0-18.0); LYMPHOCYTES # (AUTO) 1.2 10^3/uL (1.5-3.5); LYMPHOCYTES % (AUTO) 10.1 %; MEAN CORPUSCULAR HEMOGLOBIN 30.7 pg (27.0-31.0); MEAN CORPUSCULAR HGB CONC 32.7 g/dL (32.0-36.0); MEAN CORPUSCULAR VOLUME 93.7 fL (80.0-94.0); MEAN PLATELET VOLUME 12.4 fL (7.4-11.4); MONOCYTES # (AUTO) 1.1 10^3/uL (0.0-1.0); MONOCYTES % (AUTO) 9.8 %; NEUTROPHILS % (AUTO) 78.4 %; PLT - PLATELET COUNT 136 10^3/uL (130-450); RED BLOOD COUNT 3.98 10^6/uL (4.70-6.10); RED CELL DISTRIBUTION WIDTH 14.5 % (12.0-15.0); WHITE BLOOD COUNT 11.5 x10^3/uL (4.8-10.8)
[2024-03-18 11:45] LABS: PT - PROTHROMBIN TIME 30.4 secs (9.9-12.6)
--- NOTE | 2024-03-18 11:51 | XRAY Report ---
PROCEDURE: Wrist 3+V RT INDICATIONS: right wrist swelling after GLF TECHNIQUE: 4 views of the wrist were acquired. COMPARISON: None FINDINGS: Bones: Small avulsion fragment dorsal to the triquetrum, possibly with corticated edges. No acute di splaced fracture is identified. Widening of the scapholunate interval. Background moderate degenerative changes particularly at the base of the thumb. Soft tissues: Scattered periarticular calcifications and chondrocalcinosis. IMPRESSION: Age-indeterminate avulsion fragment dorsal to the triquetrum, correlate with tenderness. There is no acute displaced fracture elsewhere. Moderate background degenerative changes. Chondrocalcinosis and periarticular bone fragments. Widening of scapholunate interval implying ligamentous injury, also age indeterminate. If there is high concern for occult injury, consider repeat radiography or cross-sectional imaging. Reviewed by: Hernandez Snow MD on 03/18/2024 11:50 AM PDT Approved by: Hernandez Snow MD on 03/18/2024 11:50 AM PDT Station ID: [id number]
[2024-03-18 12:07] LABS: ALBUMIN/GLOBULIN RATIO 1.7 (1.0-2.2); ALKALINE PHOSPHATASE 80 IU/L (42-121); ALT ALANINE AMINOTRANSFERASE 13 IU/L (10-60); AST ASPARTATE AMINOTRANSFERASE 25 IU/L (10-42); BILIRUBIN,TOTAL 1.4 mg/dL (0.2-1.0); BUN - BLOOD UREA NITROGEN 18 mg/dL (6-20); CALCIUM 9.7 mg/dL (8.5-10.3); CARBON DIOXIDE - CO2 29 mmol/L (21-32); CHLORIDE 104 mmol/L (101-111); CREATININE 1.1 mg/dL (0.6-1.3); GFR - MDRD 63 (>89); GLUCOSE 96 mg/dL (74-104); MAGNESIUM 1.8 mg/dL (1.7-2.3); POTASSIUM 4.1 mmol/L (3.5-4.5); SODIUM 136 mmol/L (135-145); TOTAL PROTEIN 6.4 g/dL (6.4-8.9)
[2024-03-18 12:14] LABS: LIPASE < 10 U/L (11-82)
--- NOTE | 2024-03-18 12:14 | CT Report ---
PROCEDURE: Cervical Spine WO INDICATIONS: GLF, head injury TECHNIQUE: Noncontrast 3 mm thick sections acquired from the skull base to the T4 level. Sagittal and coronal r eformats were then constructed. For radiation dose reduction, the following was used: automated exp osure control, adjustment of mA and/or kV according to patient size. COMPARISON: 06/25/2024 FINDINGS: Image quality: Excellent. Bones: No fractures or dislocations. Visualized superior ribs are intact. ACDF of C4-5. Moderate s vira canal narrowing at all levels. Diffuse facet arthrosis. Soft tissues: Prevertebral soft tissues are normal in thickness. No paravertebral hematomas. No ap ical pneumothoraces. Moderate right pleural effusion. IMPRESSION: No acute, displaced fracture or traumatic subluxation. Moderate right pleural effusion. Reviewed by: Martir Duran MD on 03/18/2024 12:13 PM PDT Approved by: Martir Duran MD on 03/18/2024 12:13 PM PDT Station ID: [id number]
--- NOTE | 2024-03-18 12:16 | CT Report ---
PROCEDURE: Head WO INDICATIONS: GLF head injury, on blood thinners TECHNIQUE: Noncontrast 4.5 mm thick angled axial sections acquired from the foramen magnum to the vertex. For r adiation dose reduction, the following was used: automated exposure control, adjustment of mA and/or kV according to patient size. COMPARISON: 02/23/2024. FINDINGS: Image quality: Excellent. CSF spaces: Basal cisterns are patent. No extra-axial fluid collections. Ventricles are normal in size and shape. Brain: No midline shift. No intracranial masses or hemorrhage. Murguia-white matter interface is norm al. Leukoaraiosis, commonly caused by chronic small vessel ischemic disease. Age-related volume loss . Skull and face: Calvarium and visualized facial bones are intact, without suspicious lesions. Sinuses: Visualized sinuses and mastoids are clear. IMPRESSION: No acute intracranial pathology. Reviewed by: Martir Duran MD on 03/18/2024 12:14 PM PDT Approved by: Martir Duran MD on 03/18/2024 12:14 PM PDT Station ID: [id number]
--- NOTE | 2024-03-18 12:19 | CT Report ---
PROCEDURE: Chest WO INDICATIONS: GLF TECHNIQUE: A CT scan of the chest was performed. Intravenous contrast media was not administered. Images were re corded and evaluated at appropriate window settings. Reformats: axial MIP of the chest, coronal and s agittal. For radiation dose reduction, the following was used: automated exposure control, adjustment of mA and/or kV according to patient size. COMPARISON: 01/14/2024. FINDINGS: Image quality: Diagnostic. Chest wall and lower neck: No thyroid nodule which requires sonographic follow up. No axillary or sup raclavicular adenopathy by size. Lungs and pleura: No consolidation. Moderate right pleural effusion. Patchy, branching left basilar n odularity and consolidation. Mediastinum: Heart size is enlarged. Prosthetic aortic valve. No pericardial effusion. No large vesse l abnormality. No mediastinal adenopathy by size criteria. Bones: No aggressive osseous abnormality. Upper Abdomen: Hepatic cysts. IMPRESSION: No pneumothorax or displaced rib fractures. Moderate pleural effusion. Patchy, branching left basilar nodularity and consolidation. Findings may indicate pneumonia or aspir ation. Consider follow-up in 2-3 months with low-dose chest CT. Reviewed by: Martir Duran MD on 03/18/2024 12:17 PM PDT Approved by: Martir Duran MD on 03/18/2024 12:17 PM PDT Station ID: [id number]
[2024-03-18 13:26] VITALS: BP 148/93; O2SAT 97
[2024-03-18] MEDS: AZITHROMYCIN 250 MG TABLET PO STA (14:48)
[2024-03-18] MEDS: AMOX/CLAV 875 MG/125 MG TABLET PO STA (14:48)
== END 2024-03-18 14:54 | disposition home or self-care (01) ==
LOC: ED 13:23
DX: S62.111A Displaced fracture of triquetrum [cuneiform] bone, right wrist, initial encounter for closed fracture (principal); S61.511A Laceration without foreign body of right wrist, initial encounter; J18.9 Pneumonia, unspecified organism; W18.11XA Fall from or off toilet without subsequent striking against object, initial encounter; I48.91 Unspecified atrial fibrillation; F03.90 Unspecified dementia, unspecified severity, without behavioral disturbance, psychotic disturbance, mood disturbance, and anxiety; Z79.01 Long term (current) use of anticoagulants; Z79.899 Other long term (current) drug therapy
CPT/HCPCS: 36415; 80053; 83690; 83735; 85025; 85610; 99284

== ENCOUNTER 2024-07-01 02:57 | Inpatient (IN) ==
[2024-07-01] MEDS: SODIUM CHLORIDE 0.9% 1,000 ML IV STA (03:16)
--- NOTE | 2024-07-01 03:17 | ED Physician Documentation ---
History of Present Illness Stated complaint Stated Complaint: AMS/WEAKNESS Chief complaint Chief Complaint: Neuro History obtained from History obtained from: Family and EMS Additonal information Additional information: The patient is brought to the emergency department by EMS for chief complaint of generalized weakness tonight. He has a history of dementia and lives at home with his and has just seemed slower to respond, minimally communicative, and slower to move for the last day. He normally is able to perform most basic activities himself and is conversant but confused. However, he has needed more assistance with physical tasks today and then his found him frozen, hunched over the toilet. She states she could barely get him back to the bed and she is concerned that she cannot take care of him in this state. He has had to urinate multiple times today and has taken a lot of work for her to get him to and from the toilet. The patient has not had any fevers as far as the knows. No nausea or vomiting. No diarrhea. No respiratory symptoms. No other complaints at this time. Meds/Allgy Home Medications Ambulatory Orders Medication Instructions Recorded Confirmed carvedilol 3.125 mg tablet 3.125 mg PO DAILY 02/12/23 05/31/23 warfarin 5 mg tablet (Jantoven) 5 mg PO DAILY 02/12/23 03/18/24 amoxicillin 875 mg-potassium 1 tab PO Q12H 5 days #10 tabs 03/18/24 clavulanate 125 mg tablet azithromycin 250 mg tablet 250 mg PO DAILY 4 days #4 tabs 03/18/24 olanzapine 2.5 mg tablet (Zyprexa) 0.123 mg PO DAILY 03/18/24 Allergies Allergies Allergy/AdvReac Type Severity Reaction Status Date / Time hazelnut Allergy Severe Anaphylaxis Verified 03/18/24 11:12 nitroglycerin AdvReac Intermediate low b/p Verified 03/18/24 11:12 hydromorphone AdvReac Unknown Verified 03/18/24 11:12 PFSH Social History Social History Smoking Status: Never smoker Living arrangement: At home Living Condition: With spouse/s.o. History of Abuse: No ETOH Use: Frequency: Occasional POLST Patient has POLST: No Exam Constitutional normal general appearance and no apparent distress The patient is somnolent, but arousable. HENMT normocephalic, head/scalp atraumatic, external nose normal and oral mucous membranes normal Eyes EOMs intact bilaterally Neck/C-Spine visual inspection normal and supple Respiratory breath sounds equal bilaterally, normal respiratory effort and clear to auscultation bilaterally Cardiovascular normal heart rate noted and regular rhythm noted Gastrointestinal abdomen normal to inspection, abdomen soft to palpation, nontender to palpation and nondistended Genitourinary no CVA tenderness Extremities normal to inspection 2+ pitting edema bilateral lower extremities Neurology Moving all 4 extremities. Heavily somnolent, but arousable. No gross deficits. Psychiatry mental status grossly normal Skin skin color normal Results Vitals Vitals: Vital Signs - 24 hr 07/01/24 03:02 07/01/24 03:08 07/01/24 03:55 Temperature 36.1 C L Temperature Source Temporal Artery Scan Pulse Rate 69 70 Respiratory Rate 16 18 Blood Pressure 152/63 H 143/62 H O2 Saturation 94 93 O2 Source Room air Pain Intensity 0 0 0 Oxygen O2 Source Room air Labs Labs: Laboratory Tests 07/01/24 03:10 WBC 6.5 RBC 3.98 L Hgb 12.2 L Hct 37.9 L MCV 95.2 H MCH 30.7 MCHC 32.2 RDW 13.9 Plt Count 123 L MPV 12.4 H Neut # (Auto) 4.4 Lymph # (Auto) 1.1 L [place] # (Auto) 0.8 Eos # (Auto) 0.1 Baso # (Auto) 0.1 Absolute Nucleated RBC 0.00 Nucleated RBC % 0.0 Sodium 139 Potassium 4.4 Chloride 108 Carbon Dioxide 27 Anion Gap 4.0 L BUN 21 H Creatinine 1.2 Estimated GFR (MDRD) 57 L Glucose 116 H Calcium 9.6 Total Bilirubin 1.2 H AST 29 ALT 13 Alkaline Phosphatase 71 Total Protein 6.6 Albumin 3.9 Globulin 2.7 Albumin/Globulin Ratio 1.4 Lipase 13 Urine Color YELLOW Urine Clarity HAZY Urine pH 6.0 Ur Specific [place] 1.025 Urine Protein 30 H Urine Glucose (UA) NEGATIVE Urine Ketones TRACE Urine Occult Blood MODERATE H Urine Nitrite NEGATIVE Urine Bilirubin NEGATIVE Urine Urobilinogen 0.2 (NORMAL) Ur Leukocyte Esterase TRACE H Urine RBC 11-25 H Urine WBC 11-25 H Ur Squamous Epith Cells RARE Squamous Urine Bacteria Many H Ur Microscopic Review INDICATED Urine Culture Comments INDICATED Rads (name of study) Chest x-ray: Relevant Findings:: Prelim report reviewed and See rad report Interpretation: 1. Volume overload. 2. Dense consolidation of right midlung and right lung base with right pleural effusion concerning for pneumonia and parapneumonic effusion PD Medical Decision Making ED course Complexity details: reviewed old records, reviewed results, re-evaluated patient, considered differential and d/w patient ED course: The patient was somnolent and it was not clear whether this was because it was 3:00 in the morning or because he was feeling unwell. He was worked up broadly with ER abdominal panel, CBC, respiratory PCR panel, chest x-ray, and urinalysi s. He was given a liter of normal saline. The patient was found to have normal white blood cell count but a urinalysis positive for leukocyte esterase, 11-25 WBCs, and positive bacteria. His BUN and GFR were mildly worsened from baseline. Chest x-ray had also been performed and showed significant increase of either pleural effusion and fluid overload, or development of possible infiltrate. The patient had had a CT scan at the beginning of March of this year which showed a moderate right pleural effusion but no evidence of the mass. He had also demonstrated cardiomegaly at that time. The patient had oxygen saturations around 93 to 94% on room air and nonlabored respirations. I did not feel he needed an emergent thoracentesis at this time, but did start Rocephin to cover both the possibility of pneumonia and the UTI, as well as Zithromax. I discussed the case with Dr. Mckeon, the on-call hospitalist, and he agreed to admit the patient to his service. I have discussed the findings with the patient's , who is at bedside. Discharge Plan Discharge Patient Disposition: 66 [facility] DC/Xfer Condition: Serious Clinical Impression: Delirium, Dehydration, Pleural effusion UTI (urinary tract infection) Qualifiers: Urinary tract infection type: acute cystitis Hematuria presence: without hematuria Qualified Code(s): N30.00 - Acute cystitis without hematuria Pneumonia Qualifiers: Pneumonia type: due to unspecified organism Laterality: right Lung location: lower lobe of lung Qualified Code(s): J18.9 - Pneumonia, unspecified organism Prescriptions: No Action carvedilol 3.125 MG tablet 3.125 mg PO DAILY warfarin [Jantoven] 5 MG tablet 5 mg PO DAILY Patient Comments: TAKE 1/2 (ONE-HALF) OF A TABLET BY MOUTH EVERY SATURDAY, SATURDAY AND SATURDAY - TAKE 5MG (1 WHOLE TABLET) ON ALL OTHER DAYS OR DIRECTED olanzapine [Zyprexa] 2.5 MG tablet 0.123 mg PO DAILY azithromycin 250 MG tablet 250 mg PO DAILY 4 Days Qty: 4 0RF amoxicillin-pot clavulanate 1 TAB tablet 1 tab PO Q12H 5 Days Qty: 10 0RF Print Language: Yoruba Stand Alone Forms: PCP List
[2024-07-01 03:27] LABS: CLARITY,URINE HAZY (CLEAR); LEUKOCYTE ESTERASE, URINE TRACE (NEGATIVE); NITRITE,URINE NEGATIVE (NEGATIVE); PROTEIN,URINE 30 mg/dL (NEGATIVE); UROBILINOGEN,URINE 0.2 (NORMAL) E.U./dL (NORMAL)
[2024-07-01 03:28] LABS: BILIRUBIN,URINE NEGATIVE (NEGATIVE); GLUCOSE, URINE (UA) NEGATIVE (NEGATIVE); KETONES,URINE (UA) TRACE mg/dL (NEGATIVE); OCCULT BLOOD,URINE MODERATE (NEGATIVE)
[2024-07-01 03:31] LABS: SQUAMOUS EPITHELIAL CELL,UR RARE Squamous (<= Few)
[2024-07-01 03:32] LABS: BACTERIA,URINE Many /HPF (None Seen)
[2024-07-01 03:36] LABS: BASOPHILS % (AUTO) 0.8 %; EOSINOPHILS # (AUTO) 0.1 10^3/uL (0.0-0.7); EOSINOPHILS % (AUTO) 1.5 %; HCT - HEMATOCRIT 37.9 % (42.0-52.0); HGB - HEMOGLOBIN 12.2 g/dL (14.0-18.0); LYMPHOCYTES # (AUTO) 1.1 10^3/uL (1.5-3.5); LYMPHOCYTES % (AUTO) 16.7 %; MEAN CORPUSCULAR HEMOGLOBIN 30.7 pg (27.0-31.0); MEAN CORPUSCULAR HGB CONC 32.2 g/dL (32.0-36.0); MEAN CORPUSCULAR VOLUME 95.2 fL (80.0-94.0); MONOCYTES # (AUTO) 0.8 10^3/uL (0.0-1.0); MONOCYTES % (AUTO) 12.2 %; NEUTROPHILS # (AUTO) 4.4 10^3/uL (1.5-6.6); NEUTROPHILS % (AUTO) 68.5 %; RED BLOOD COUNT 3.98 10^6/uL (4.70-6.10); RED CELL DISTRIBUTION WIDTH 13.9 % (12.0-15.0); WHITE BLOOD COUNT 6.5 x10^3/uL (4.8-10.8)
[2024-07-01 03:37] LABS: BASOPHILS # (AUTO) 0.1 10^3/uL (0.0-0.1)
[2024-07-01 03:38] LABS: MEAN PLATELET VOLUME 12.4 fL (7.4-11.4); PLT - PLATELET COUNT 123 10^3/uL (130-450)
[2024-07-01 03:49] LABS: ALBUMIN 3.9 g/dL (3.2-5.5); ALBUMIN/GLOBULIN RATIO 1.4 (1.0-2.2); BILIRUBIN,TOTAL 1.2 mg/dL (0.2-1.0); CALCIUM 9.6 mg/dL (8.5-10.3); CREATININE 1.2 mg/dL (0.6-1.3); POTASSIUM 4.4 mmol/L (3.5-4.5); TOTAL PROTEIN 6.6 g/dL (6.4-8.9)
[2024-07-01] MEDS ORDERED: cefTRIAXone 2 GM VIAL ONE (04:09)
[2024-07-01] MEDS: cefTRIAXone 2 GM in SODIUM CHLORIDE 0.9% MINIBAG 100 ML IV STA (04:11)
[2024-07-01] MEDS ORDERED: polyethylene glycoL 3350 17 GM PACKET PO PRN (04:16)
[2024-07-01] MEDS ORDERED: ACETAMINOPHEN 325 MG TABLET PO PRN (04:16)
[2024-07-01 04:20] LABS: B. PARAPERTUSSIS- RESP PCR PAN NOT DETECTED; B. PERTUSSIS- RESP PCR PANEL NOT DETECTED; C. PNEUMONIAE- RESP PCR PANEL NOT DETECTED; CORONAVIRUS 229E-RESP PCR NOT DETECTED; CORONAVIRUS HKU1-RESP PCR NOT DETECTED; CORONAVIRUS NL63-RESP PCR NOT DETECTED; CORONAVIRUS OC43-RESP PCR NOT DETECTED; HUMAN METAPNEUMOVIRUS NOT DETECTED; INFLUENZA A- RESP PCR PANEL NOT DETECTED; INFLUENZA B - RESP PCR PANEL NOT DETECTED; M. PNEUMONIAE- RESP PCR PANEL NOT DETECTED; PARAINFLUENZA VIRUS 1 NOT DETECTED; PARAINFLUENZA VIRUS 2 NOT DETECTED; PARAINFLUENZA VIRUS 3 NOT DETECTED; PARAINFLUENZA VIRUS 4 NOT DETECTED; RHINOVIRUS/ENTEROVIRUS NOT DETECTED; RSV- RESP PCR PANEL NOT DETECTED; SARS-CoV-2 -RESP PCR PANEL NOT DETECTED
[2024-07-01] MEDS ORDERED: FUROSEMIDE 20 MG TABLET PO PRN ×2 (04:30→14:02)
[2024-07-01] MEDS: metroNIDAZOLE 500 MG/100 ML 500 MG/100 ML BAG IV SCH (04:48)
--- NOTE | 2024-07-01 04:59 | HISTORY & PHYSICAL EXAMINATION ---
Chief Complaint Chief Complaint Chief Complaint: altered History of Present Illness Admitted From Admitted From:: ED History Obtained From Records Reviewed: EMR History obtained from: ED staff and Exam Limitations: Telemedicine History of Present Illness HPI Comment/Other: 89M c dementia and atrial fibrillation on Coumadin who was brought into the Hospital for report of altered mentation. is at bedside proving all information. Patient is somnolent at this time. Per , patient for the past couple of days has had decreased verbal communication. He was noted for frequent urination. He today was confused and not following command and not able to ambulate despite assistance. decided to bring patient into the ED. reports patient at baseline is able to assist with ADLs. He is able to communicate appropriately. Past couple of days and especially today, patient could not verbalize or assist with ADLs. No report of fever. Patient chronically aspirates. No report of runny nose. No report of sore throat. No report of chest pain. No n/v/d. No travel and no sick contact. Review of Systems Status of ROS: unobtainable due to medical condition (altered and nonverbal. ) PFSH Social History Social History Smoking Status: Never smoker Living arrangement: At home Living Condition: With spouse/s.o. History of Abuse: No ETOH Use: Frequency: Occasional POLST Patient has POLST: No Meds/Allgy Home Medications Ambulatory Orders Medication Instructions Recorded Confirmed carvedilol 3.125 mg tablet 3.125 mg PO DAILY 02/12/23 05/31/23 warfarin 5 mg tablet (Jantoven) 5 mg PO DAILY 02/12/23 03/18/24 amoxicillin 875 mg-potassium 1 tab PO Q12H 5 days #10 tabs 03/18/24 clavulanate 125 mg tablet azithromycin 250 mg tablet 250 mg PO DAILY 4 days #4 tabs 03/18/24 olanzapine 2.5 mg tablet (Zyprexa) 0.123 mg PO DAILY 03/18/24 Allergies Allergies Allergy/AdvReac Type Severity Reaction Status Date / Time hazelnut Allergy Severe Anaphylaxis Verified 03/18/24 11:12 nitroglycerin AdvReac Intermediate low b/p Verified 03/18/24 11:12 hydromorphone AdvReac Unknown Verified 03/18/24 11:12 Exam Constitutional normal general appearance and no apparent distress The patient is somnolent, but arousable. HENMT normocephalic, head/scalp atraumatic, external nose normal and oral mucous membranes normal Eyes EOMs intact bilaterally Neck/C-Spine visual inspection normal and supple Respiratory breath sounds equal bilaterally, normal respiratory effort and clear to auscultation bilaterally Cardiovascular normal heart rate noted, regular rhythm noted and no edema Gastrointestinal abdomen normal to inspection, abdomen soft to palpation, nontender to palpation and nondistended Genitourinary no CVA tenderness Extremities normal to inspection 2+ pitting edema bilateral lower extremities Neurology Moving all 4 extremities. Heavily somnolent, but arousable. No gross deficits. Psychiatry mental status grossly normal Skin skin color normal Conclusion/Plan Problem List (1) UTI (urinary tract infection): Plan: -noted mild-mod abnormal UA. empiric abx and followup cultures. Qualifiers: Hematuria presence: without hematuria Urinary tract infection type: a cute cystitis Qualified Code(s): N30.00 - Acute cystitis without hematuria (2) Pneumonia: Plan: -noted RLL infiltrate that seems bigger than previously noted on CT chest. will empirically cover. followup cultures for insight into abx coverage. add breathing treatment. Qualifiers: Laterality: right Lung location: lower lobe of lung Pneumonia type: d ue to unspecified organism Qualified Code(s): J18.9 - Pneumonia, unspecified organism (3) Metabolic encephalopathy: Plan: -confusion 2/2 infection - PNA vs UTI. empiric abx coverage for possibility and followup cultures for insight into presentation. (4) Hypertension: Plan: - reporting only giving twice weekly. opting to hold and monitor with repeat vital checks. intervene as needed (5) CHF (congestive heart failure): Plan: -possibly in exacerbation given pleural effusion noted RLL. will treat with iv equivalent Lasix. monitor I&O and daily weight. (6) Atrial fibrillation: Plan: -rate controlled. continue twice weekly Coreg. monitor HR on tele. (7) Hypercoagulable state due to atrial fibrillation: Plan: -stable hgb/hct. no active bleed reported. continue Warfarin. Plan -confusion 2/2 infection - PNA vs UTI. empiric abx coverage for possibility and followup cultures for insight into presentation. Lab Results Lab results reviewed: Yes 07/01/24 03:10 07/01/24 03:10 Diagnostic Imaging Results Diagnostic Imaging Results: positive Prelim report reviewed (cxr with cardiomegaly and RLL infiltrate - present on previous chest imaging) EKG Results EKG Interpreted Independently: Yes EKG Findings: afib Core Measures Anticipated LOS I expect patient to be DC'd or transferred within 96 hours.: Yes Issues Hospital Issues and Management Plan: The patient consented to receive this telemedicine service, which I performed via live two-way audiovisual equipment. The patient is at ([facility]) and I am physically in [facility]. DNR. okay for intubation. per POA SCDs, Warfarin Inpatient [facility] DO Internal Medicine [facility] Tele Surgical Brace Maker DVT/VTE - Prophylaxis VTE/DVT Device ordered at admit?: Yes Telemedicine Consult Details Provider Location & Consult Time Telemedicine consultation conducted via videoconferencing?: Yes List names and roles of persons who participated in consult:: ED staff and Telemedicine provider location:: [facility] Time Telemedicine consult began:: 04:10 Time Telemedicine consult completed:: 04:37
[2024-07-01 05:05] LABS: INR 3.4 (0.8-1.2); PT - PROTHROMBIN TIME 34.4 secs (9.9-12.6)
[2024-07-01] MEDS: AZITHROMYCIN INJ 500 MG in SODIUM CHLORIDE 0.9% 250 ML IV STA (05:12)
[2024-07-01] MEDS: DOXYCYCLINE INJ 100 MG in SODIUM CHLORIDE 0.9% MINIBAG 100 ML IV SCH (06:37)
--- NOTE | 2024-07-01 08:20 | XRAY Report ---
PROCEDURE: XR Chest 1V INDICATIONS: aloc/fever TECHNIQUE: One view of the chest was acquired. COMPARISON: 01/14/2024. FINDINGS: Surgical changes and devices: None. Lungs and pleura: Prominent interstitial markings. Large right pleural effusion with adjacent atelec tasis versus consolidation. Mediastinum: Mediastinal contours appear normal. Heart size is enlarged. Bones and chest wall: No suspicious bony lesions. Overlying soft tissues appear unremarkable. IMPRESSION: Prominent interstitial markings, most consistent with pulmonary edema. Large right pleural effusion w ith adjacent atelectasis versus consolidation. Findings are concordant with preliminary interpretation provided by [facility]. Reviewed by: Kaleb Navas MD on 07/01/2024 8:18 AM PST Approved by: Kaleb Navas MD on 07/01/2024 8:18 AM PST Station ID: [id number]
[2024-07-01] MEDS ORDERED: carvediloL 3.125 MG TABLET PO SCH (09:00)
[2024-07-01] MEDS ORDERED: IPRATROPIUM/ALBUTEROL 3 ML NEB INH PRN (09:00)
[2024-07-01] MEDS ORDERED: OLANZapine ODT 5 MG TABLET TL SCH (09:00)
[2024-07-01] MEDS: OLANZapine ODT 5 MG TABLET TL SCH (09:51)
[2024-07-01] MEDS: SODIUM CHLORIDE FLUSH 0.9% 10 ML SYRINGE IVP SCH (09:57)
[2024-07-01] MEDS: FUROSEMIDE 40 MG/4 ML VIAL IVP SCH (09:57)
[2024-07-01] MEDS: AMOX/CLAV 875 MG/125 MG TABLET PO SCH (09:57)
[2024-07-01] MEDS: AZITHROMYCIN 250 MG TABLET PO SCH (09:59)
[2024-07-01] MEDS: WARFARIN 5 MG TABLET PO SCH (09:59)
--- NOTE | 2024-07-01 10:35 | PHARMACY PROGRESS NOTE ---
Best Possible Medication History Admit Date and Time: 07/01/24 0434 Home Medications Medication Instructions Recorded Confirmed Type warfarin 5 mg tablet (Jantoven) 5 mg PO .jones,tu,we,fr,sa 02/12/23 07/01/24 History furosemide 20 mg tablet 20 mg PO UD PRN edema 07/01/24 07/01/24 History latanoprost 0.005 % eye drops 1 drp ophthalmic (eye) QPM 07/01/24 07/01/24 History olanzapine 7.5 mg tablet 7.5 mg PO BID 07/01/24 07/01/24 History warfarin 5 mg tablet 2.5 mg PO .mo,th 07/01/24 07/01/24 History Processed by: Pharmacy (Medication Reconciliation completed by Associate Professor Of SurgeryCaity) Medications reviewed in ED?: No Medication History completed: Yes Patient Interview: Completed Secondary Source(s): Spouse/Significant other and Insurance records [facility] Statement: As the person ultimately responsible for medication therapy, providers are able to order a medication from an existing home medication list in [facility] via the "Reconcile Routine" prior to Confirmation of that medication by support manager. Such practice is discouraged except when the physician, in their clinical judgment, deems that a medical need exists for a medication without regard to previous use.
--- NOTE | 2024-07-01 11:07 | PHARMACY PROGRESS NOTE ---
Monitoring Indication for anticoagulation: Atrial Fibrillation Goal INR: 2-3 Previous home regime: 2.5mg Mon, Christina. 5mg AOD Potentially interacting medications: Azithromycin, Augmentin Other anticoagulation: None Risk factors for bleed: Hypertension, Heart disease or MT (CHF) and Age >65 Recommendations Dosing: Anticoagulation Monitoring 07/01/24 07/01/24 04:50 03:10 Hgb 12.2 L Hct 37.9 L PT 34.4 H INR 3.4 H Last Dose Given:at home prior to admission S&S of bleeding:N/A Pharmacy recommendation: Hold dose (INR currently 3.4. Holding today with azithromycin and augmentin started, plan on recheck tomorrow and adjusting accordingly)
--- NOTE | 2024-07-01 12:02 | PROVIDER PROGRESS NOTE ---
Subjective Prog Note Date Prog Note Date: 07/01/24 Current Medications Current Medications Current Medications: Current Medications Generic Name Dose Route Start Last Admin Trade Name Freq PRN Reason Stop Dose Admin Acetaminophen 650 mg 07/01/24 04:16 Acetaminophen 325 Mg Tablet PO Q4HR PRN Pain 1 to 4, or Fever Albuterol/Ipratropium 3 ml 07/01/24 09:00 Ipratropium/Albuterol 3 Ml Neb INH Q6HR PRN Wheezing Amoxicillin/Clavulanate Potassium 1 tab 07/01/24 09:00 07/01/24 09:57 Amox/Clav 875 Mg/125 Mg Tablet PO 07/05/24 08:59 1 tab BID MACIE Administration Azithromycin 500 mg 07/02/24 09:00 Azithromycin 250 Mg Tablet PO 07/03/24 09:01 DAILY MACIE Furosemide 20 mg 07/01/24 09:00 07/01/24 09:57 Furosemide 40 Mg/4 Ml Vial IVP 20 mg DAILY MACIE Administration Olanzapine 7.5 mg 07/01/24 09:00 07/01/24 09:51 Olanzapine Odt 5 Mg Tablet TL 7.5 mg BID MACIE Administration Polyethylene Glycol 17 gm 07/01/24 04:16 Polyethylene Glycol 3350 17 Gm Packet PO DAILY PRN Constipation Sodium Chloride 10 ml 07/01/24 04:16 Sodium Chloride Flush 0.9% 10 Ml Syringe IVP PRN PRN NEEDED PER PROVIDER ORDERS Sodium Chloride 10 ml 07/01/24 09:00 07/01/24 09:57 Sodium Chloride Flush 0.9% 10 Ml Syringe IVP 10 ml 0100,0900,1700 MACIE Administration Objective Vital Signs/Intake & Output Vital Signs: Vital Signs x48h Temp Pulse Pulse Pulse Pulse Resp BP 07/01/24 10:25 85 94 H 07/01/24 05:54 36.4 C L 92 H 18 07/01/24 04:16 36.5 C 64 18 153/71 H BP BP BP Pulse Ox 07/01/24 10:25 171/98 H 193/96 H 07/01/24 05:54 173/81 H 96 07/01/24 04:16 95 Intake & Output: Intake & Output 06/29/24 06/30/24 07/01/24 07/02/24 05:59 05:59 05:59 05:59 Intake Total 1200 / 1200 470 / 470 Balance 1200 / 1200 470 / 470 Weight (kg) 94 kg Lab Results 07/01/24 03:10 07/01/24 03:10 Other Labs: Lab Results x24hrs 07/01/24 07/01/24 07/01/24 Range/Units 04:50 03:18 03:10 WBC 6.5 (4.8-10.8) x10^3/uL RBC 3.98 L (4.70-6.10) 10^6/uL Hgb 12.2 L (14.0-18.0) g/dL Hct 37.9 L (42.0-52.0) % MCV 95.2 H (80.0-94.0) fL MCH 30.7 (27.0-31.0) pg MCHC 32.2 (32.0-36.0) g/dL RDW 13.9 (12.0-15.0) % Plt Count 123 L (130-450) 10^3/uL MPV 12.4 H (7.4-11.4) fL Neut # (Auto) 4.4 (1.5-6.6) 10^3/uL Lymph # (Auto) 1.1 L (1.5-3.5) 10^3/uL [place] # (Auto) 0.8 (0.0-1.0) 10^3/uL Eos # (Auto) 0.1 (0.0-0.7) 10^3/uL Baso # (Auto) 0.1 (0.0-0.1) 10^3/uL Absolute Nucleated RBC 0.00 x10^3/uL Nucleated RBC % 0.0 /100WBC PT 34.4 H (9.9-12.6) secs INR 3.4 H (0.8-1.2) Sodium 139 (135-145) mmol/L Potassium 4.4 (3.5-4.5) mmol/L Chloride 108 (101-111) mmol/L Carbon Dioxide 27 (21-32) mmol/L Anion Gap 4.0 L (6-13) BUN 21 H (6-20) mg/dL Creatinine 1.2 (0.6-1.3) mg/dL Estimated GFR (MDRD) 57 L (>89) Glucose 116 H (74-104) mg/dL Calcium 9.6 (8.5-10.3) mg/dL Total Bilirubin 1.2 H (0.2-1.0) mg/dL AST 29 (10-42) IU/L ALT 13 (10-60) IU/L Alkaline Phosphatase 71 (42-121) IU/L Total Protein 6.6 (6.4-8.9) g/dL Albumin 3.9 (3.2-5.5) g/dL Globulin 2.7 (2.1-4.2) g/dL Albumin/Globulin Ratio 1.4 (1.0-2.2) Lipase 13 (11-82) U/L Procalcitonin Immunoas < 0.05 (<0.5) ng/mL Urine Color YELLOW Urine Clarity HAZY (CLEAR) Urine pH 6.0 (5.0-7.5) PH Ur Specific [place] 1.025 (1.002-1.030) Urine Protein 30 H (NEGATIVE) mg/dL Urine Glucose (UA) NEGATIVE (NEGATIVE) mg/dL Urine Ketones TRACE (NEGATIVE) mg/dL Urine Occult Blood MODERATE H (NEGATIVE) Urine Nitrite NEGATIVE (NEGATIVE) Urine Bilirubin NEGATIVE (NEGATIVE) Urine Urobilinogen 0.2 (NORMAL) (NORMAL) E.U./dL Ur Leukocyte Esterase TRACE H (NEGATIVE) Urine RBC 11-25 H (0-5) /HPF Urine WBC 11-25 H (0-3) /HPF Ur Squamous Epith Cells RARE Squamous (<= Few) Urine Bacteria Many H (None Seen) /HPF Ur Microscopic Review INDICATED Urine Culture Comments INDICATED Nasal Adenovirus (PCR) NOT DETECTED Nasal B. parapertussis DNA (PCR) NOT DETECTED Nasal Coronavir 229E PCR NOT DETECTED Nasal Coronavir HKU1 PCR NOT DETECTED Nasal Coronavir NL63 PCR NOT DETECTED Nasal Coronavir OC43 PCR NOT DETECTED Nasal Enterovir/Rhinovir PCR NOT DETECTED Nasal Influenza B PCR NOT DETECTED Nasal Influenza A PCR NOT DETECTED Nasal Parainfluen 1 PCR NOT DETECTED Nasal Parainfluen 2 PCR NOT DETECTED Nasal Parainfluen 3 PCR NOT DETECTED Nasal Parainfluen 4 PCR NOT DETECTED Nasal RSV (PCR) NOT DETECTED Nasal B.pertussis DNA PCR NOT DETECTED Nasal C.pneumoniae (PCR) NOT DETECTED Jose Human Metapneumo PCR NOT DETECTED Nasal M.pneumoniae (PCR) NOT DETECTED Nasal SARS-CoV-2 (PCR) NOT DETECTED Assessment/Plan Problem List (1) UTI (urinary tract infection): Qualifiers: Hematuria presence: without hematuria Urinary tract infection type: a cute cystitis Qualified Code(s): N30.00 - Acute cystitis without hematuria (2) Pneumonia: Qualifiers: Laterality: right Lung location: lower lobe of lung Pneumonia type: d ue to unspecified organism Qualified Code(s): J18.9 - Pneumonia, unspecified organism (3) Metabolic encephalopathy: (4) Hypertension: (5) CHF (congestive heart failure): (6) Atrial fibrillation: (7) Hypercoagulable state due to atrial fibrillation:
--- NOTE | 2024-07-01 13:13 | PT Plan of Care ---
PT Inpatient Plan of Care DIAGNOSIS Diagnosis: Altered Mentation Diagnosis: UTI Referring Provider: Armando Guerrero Patient Status: Inpatient CHIEF COMPLAINT Chief Complaint: Altered Mentation/Dementia Onset of Chief Complaint: [employer] BALANCE/FUNCTIONAL RESULTS Sitting Balance: Good Standing Balance: Fair ASSESSMENT Assessment: Pt is an 89 y.o male recently admitted with altered mentation and UTI. Pt has a hx of dementia, CHF and A-fib. Pt is hypoverbal but is alert and attentive. His is his caregiver and was able to report on PLOF. They have a flight of stairs in home, a FWW that pt does not use, a raised toilet seat and grab bars, a walk in shower w/o grab bars or seat. She states that he was ind amb in home and MinAx1 with ADLS but in the past couple of weeks his assist needs have surpassed her ability. Before pt's called EMS, they were att empting toileting but he was freezing and showed increased rigidity and she was unable to help him move. She also reports that he was able to hold minimal conversation with her but he has become hypoverbal. During PT eval pt was sitting in bedside chair, he was was able to follow cueing for BP readings and donning gait belt. His STS is MinAx1 with FWW and requires verbal cueing for FWW use. His BP increased from 171/98 with 122 MAP to 193/96 with 128 MAP. He is unable to report symptoms but with the significant increase of BP, mobility progress stopped. Patient will benefit from skilled PT due to limited mobility, will continue to assess rehab potential. When medically cleared PT recommends discharge to SNF. GOALS Improve supine to sit to:: Modified Independent Improve sit to stand to:: Contact Guard Improve sit to supine to:: Contact Guard Improve gait ability to:: Min A Advance Assistive Device to:: Front Wheeled Walker Increase distance walked to (in feet):: 15 Improve Sitting Balance to:: Good PLAN Frequency: 1-2x/day Duration: Until goals are met DISCHARGE RECOMMENDATIONS Discharge Location: [facility] Facility Support/Services Needed: With assist DC Equipment Recommended: Front wheeled walker Transport Needs at Discharge: B.L.S Other: Pt is nonverbal and confused
[2024-07-01] MEDS ORDERED: hydrALAZINE INJ 20 MG/ML VIAL IVP PRN (14:05)
[2024-07-01] MEDS: lisinopriL 20 MG TABLET PO SCH (15:14)
[2024-07-01] MEDS: LATANOPROST 0.005% OPHTH DROPS EACHEYE SCH (20:59)
[2024-07-02] MEDS ORDERED: cefTRIAXone 2 GM in SODIUM CHLORIDE 0.9% MINIBAG 100 ML IV SCH (04:00)
[2024-07-02 05:57] LABS: INR 2.7 (0.8-1.2); PT - PROTHROMBIN TIME 27.8 secs (9.9-12.6)
[2024-07-02 05:58] LABS: BASOPHILS % (AUTO) 0.4 %; EOSINOPHILS % (AUTO) 0.1 %; HCT - HEMATOCRIT 35.7 % (42.0-52.0); LYMPHOCYTES # (AUTO) 0.9 10^3/uL (1.5-3.5); LYMPHOCYTES % (AUTO) 8.9 %; MEAN CORPUSCULAR HEMOGLOBIN 31.1 pg (27.0-31.0); MEAN CORPUSCULAR HGB CONC 33.6 g/dL (32.0-36.0); MEAN CORPUSCULAR VOLUME 92.5 fL (80.0-94.0); MONOCYTES # (AUTO) 1.2 10^3/uL (0.0-1.0); MONOCYTES % (AUTO) 11.7 %; NEUTROPHILS # (AUTO) 7.7 10^3/uL (1.5-6.6); NEUTROPHILS % (AUTO) 78.4 %; RED BLOOD COUNT 3.86 10^6/uL (4.70-6.10); RED CELL DISTRIBUTION WIDTH 14.2 % (12.0-15.0); WHITE BLOOD COUNT 9.8 x10^3/uL (4.8-10.8)
[2024-07-02 06:05] LABS: MEAN PLATELET VOLUME 13.4 fL (7.4-11.4); PLT - PLATELET COUNT 124 10^3/uL (130-450)
[2024-07-02 06:12] LABS: CREATININE 2.4 mg/dL (0.6-1.3); POTASSIUM 4.5 mmol/L (3.5-4.5)
[2024-07-02 06:21] LABS: TROPONIN I HIGH SENSITIVITY 153.3 ng/L (2.3-19.7)
[2024-07-02] MEDS: AZITHROMYCIN 250 MG TABLET PO SCH (08:44)
[2024-07-02] MEDS: FUROSEMIDE 20 MG TABLET PO SCH (08:44)
--- NOTE | 2024-07-02 09:12 | PROVIDER PROGRESS NOTE ---
Subjective Prog Note Date Prog Note Date: 07/02/24 Subjective Pt reports feeling: No change Current Medications Current Medications Current Medications: Current Medications Generic Name Dose Route Start Last Admin Trade Name Freq PRN Reason Stop Dose Admin Acetaminophen 650 mg 07/01/24 04:16 Acetaminophen 325 Mg Tablet PO Q4HR PRN Pain 1 to 4, or Fever Albuterol/Ipratropium 3 ml 07/01/24 09:00 Ipratropium/Albuterol 3 Ml Neb INH Q6HR PRN Wheezing Amoxicillin/Clavulanate Potassium 1 tab 07/01/24 09:00 07/02/24 08:44 Amox/Clav 875 Mg/125 Mg Tablet PO 07/05/24 08:59 1 tab BID MACIE Administration Aspirin 81 mg 07/03/24 09:00 Aspirin Ec 81 Mg Tablet PO DAILY MACIE Azithromycin 500 mg 07/02/24 09:00 07/02/24 08:44 Azithromycin 250 Mg Tablet PO 07/03/24 09:01 500 mg DAILY MACIE Administration Furosemide 20 mg 07/02/24 09:00 07/02/24 08:44 Furosemide 20 Mg Tablet PO 20 mg DAILY MACIE Administration Hydralazine HCl 10 mg 07/01/24 14:05 Hydralazine Inj 20 Mg/Ml Vial IVP Q6H PRN SBP> or= 160 OR DBP> or= 110 Latanoprost 1 drops 07/01/24 21:00 07/01/24 20:59 Latanoprost 0.005% Ophth Drops EACHEYE 1 drops QPM MACIE Administration Lisinopril 20 mg 07/01/24 14:05 07/02/24 08:44 Lisinopril 20 Mg Tablet PO 20 mg DAILY MACIE Administration Olanzapine 7.5 mg 07/01/24 09:00 07/02/24 08:40 Olanzapine Odt 5 Mg Tablet TL 7.5 mg BID MACIE Administration Polyethylene Glycol 17 gm 07/01/24 04:16 Polyethylene Glycol 3350 17 Gm Packet PO DAILY PRN Constipation Sodium Chloride 10 ml 07/01/24 04:16 Sodium Chloride Flush 0.9% 10 Ml Syringe IVP PRN PRN NEEDED PER PROVIDER ORDERS Sodium Chloride 10 ml 07/01/24 09:00 07/02/24 00:39 Sodium Chloride Flush 0.9% 10 Ml Syringe IVP 10 ml 0100,0900,1700 MACIE Administration Objective Vital Signs/Intake & Output Reviewed Vital Signs: Yes Vital Signs: Vital Signs x48h Temp Pulse Resp BP Pulse Ox 07/02/24 05:23 36.9 C 74 20 144/89 H 94 Intake & Output: Intake & Output 06/30/24 07/01/24 07/02/24 07/03/24 05:59 05:59 05:59 05:59 Intake Total 1200 / 1200 610 / 610 Balance 1200 / 1200 610 / 610 Weight (kg) 94 kg Objective General Appearance: positive No acute distress and Alert Eyes Bilateral: positive Normal inspection and PERRL ENT: positive ENT inspection nml Neck: positive Nml inspection Respiratory: positive Chest non-tender and No respiratory distress Cardiovascular: positive No murmur and Irregularly irregular Abdomen: positive Non-tender Rectal: positive Non-tender Skin: positive Color nml Extremities: positive Non-tender Neurologic/Psychiatric: positive Other (Tracks with eyes, follows commands, not interactive with interview) Lab Results 07/02/24 05:42 07/02/24 05:42 Other Labs: Lab Results x24hrs 07/02/24 07/02/24 Range/Units 08:10 05:42 WBC 9.8 (4.8-10.8) x10^3/uL RBC 3.86 L (4.70-6.10) 10^6/uL Hgb 12.0 L (14.0-18.0) g/dL Hct 35.7 L (42.0-52.0) % MCV 92.5 (80.0-94.0) fL MCH 31.1 H (27.0-31.0) pg MCHC 33.6 (32.0-36.0) g/dL RDW 14.2 (12.0-15.0) % Plt Count 124 L (130-450) 10^3/uL MPV 13.4 H (7.4-11.4) fL Neut # (Auto) 7.7 H (1.5-6.6) 10^3/uL Lymph # (Auto) 0.9 L (1.5-3.5) 10^3/uL [place] # (Auto) 1.2 H (0.0-1.0) 10^3/uL Eos # (Auto) 0.0 (0.0-0.7) 10^3/uL Baso # (Auto) 0.0 (0.0-0.1) 10^3/uL Absolute Nucleated RBC 0.00 x10^3/uL Nucleated RBC % 0.0 /100WBC PT 27.8 H (9.9-12.6) secs INR 2.7 H (0.8-1.2) Sodium 140 (135-145) mmol/L Potassium 4.5 (3.5-4.5) mmol/L Chloride 108 (101-111) mmol/L Carbon Dioxide 27 (21-32) mmol/L Anion Gap 5.0 L (6-13) BUN 28 H (6-20) mg/dL Creatinine 2.4 H (0.6-1.3) mg/dL Estimated GFR (MDRD) 26 L (>89) Glucose 129 H (74-104) mg/dL Calcium 9.0 (8.5-10.3) mg/dL Troponin I High Sens 154.7 H* 153.3 H* (2.3-19.7) ng/L B-Natriuretic Peptide 602 H (5-100) pg/mL Other Results/Comments Other Results/Comments: EKG atrial fibrillation, 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 They mentioned possibility of palliative care consult. I told them that we can certainly accommodate this. We will consider palliative care consult in the next day or 2 if he does not respond to antibiotics (2) Acute kidney failure: Impression: This is likely secondary to dehydration. I have stopped his Lasix. I have ordered 1 L LR bolus. I would like to encourage him to increase his p.o. water intake, but he is somnolent at this time. BMP daily while inpatient (3) Elevated troponin: Impression: I have added aspirin EKG with no acute ischemic changes Continue to trend troponin (4) UTI (urinary tract infection): Impression: Changing antibiotics back to Rocephin given somnolence Qualifiers: Hematuria presence: without hematuria Urinary tract infection type: a cute cystitis Qualified Code(s): N30.00 - Acute cystitis without hematuria (5) Pneumonia: Impression: Placing patient back on Rocephin/Zithromax IV given somnolence On room air Qualifiers: Laterality: right Lung location: lower lobe of lung Pneumonia type: d ue to unspecified organism Qualified Code(s): J18.9 - Pneumonia, unspecified organism (6) Hypertension: Impression: He was started on lisinopril yesterday with good effect. Will cautiously continue. If his kidney function continues to worsen will hold (7) CHF (congestive heart failure): Impression: Was given IV Lasix because he had pleural effusion noted on the right.He is maintaining his oxygenation on room air, will hold any further Lasix (8) Atrial fibrillation: Impression: Rate controlled. Takes Coreg twice a week at home. Will give him a dose of Coreg if his heart rate begins to rise (9) Hypercoagulable state due to atrial fibrillation: Impression: Holding warfarin per pharmacy recommendation. They will determine when he is okay to restart
[2024-07-02] MEDS: LACTATED RINGERS 1,000 ML IV ONE (09:23)
[2024-07-02] MEDS: ASPIRIN CHEW 81 MG TABLET PO STA (09:23)
[2024-07-02] MEDS: cefTRIAXone 1 GM in SODIUM CHLORIDE 0.9% MINIBAG 100 ML IV SCH (11:45)
[2024-07-02] MEDS: AZITHROMYCIN INJ 500 MG in SODIUM CHLORIDE 0.9% 250 ML IV SCH (12:26)
[2024-07-02] MEDS: metroNIDAZOLE 500 MG/100 ML 500 MG/100 ML BAG IV SCH (13:30)
[2024-07-03] MEDS: SODIUM CHLORIDE FLUSH 0.9% 10 ML SYRINGE IVP PRN (03:54)
[2024-07-03 06:12] LABS: INR 2.4 (0.8-1.2); PT - PROTHROMBIN TIME 25.1 secs (9.9-12.6)
[2024-07-03 06:16] LABS: BASOPHILS % (AUTO) 0.4 %; EOSINOPHILS % (AUTO) 0.3 %; HCT - HEMATOCRIT 37.3 % (42.0-52.0); HGB - HEMOGLOBIN 12.1 g/dL (14.0-18.0); LYMPHOCYTES % (AUTO) 10.5 %; MEAN CORPUSCULAR HEMOGLOBIN 30.8 pg (27.0-31.0); MEAN CORPUSCULAR HGB CONC 32.4 g/dL (32.0-36.0); MEAN CORPUSCULAR VOLUME 94.9 fL (80.0-94.0); MEAN PLATELET VOLUME 13.6 fL (7.4-11.4); MONOCYTES % (AUTO) 11.3 %; NEUTROPHILS % (AUTO) 77.2 %; PLT - PLATELET COUNT 122 10^3/uL (130-450); RED BLOOD COUNT 3.93 10^6/uL (4.70-6.10); RED CELL DISTRIBUTION WIDTH 14.3 % (12.0-15.0); WHITE BLOOD COUNT 9.1 x10^3/uL (4.8-10.8)
[2024-07-03 06:23] LABS: CREATININE 2.8 mg/dL (0.6-1.3); POTASSIUM 4.4 mmol/L (3.5-4.5)
--- NOTE | 2024-07-03 08:21 | PROVIDER PROGRESS NOTE ---
Subjective Prog Note Date Prog Note Date: 07/03/24 Subjective Pt reports feeling: Improved Subjective: Family member at bedside says he is more alert today than he was yesterday. Slept well overnight Current Medications Current Medications Current Medications: Current Medications Generic Name Dose Route Start Last Admin Trade Name Freq PRN Reason Stop Dose Admin Acetaminophen 650 mg 07/01/24 04:16 Acetaminophen 325 Mg Tablet PO Q4HR PRN Pain 1 to 4, or Fever Albuterol/Ipratropium 3 ml 07/01/24 09:00 Ipratropium/Albuterol 3 Ml Neb INH Q6HR PRN Wheezing Amlodipine Besylate 5 mg 07/03/24 09:00 Amlodipine 5 Mg Tablet PO DAILY MACIE Aspirin 81 mg 07/03/24 09:00 Aspirin Ec 81 Mg Tablet PO DAILY MACIE Hydralazine HCl 10 mg 07/01/24 14:05 Hydralazine Inj 20 Mg/Ml Vial IVP Q6H PRN SBP> or= 160 OR DBP> or= 110 Azithromycin 500 mg/ Sodium 250 mls @ 250 mls/hr 07/02/24 11:00 07/02/24 13:29 Chloride IV 07/03/24 09:59 Infused DAILY MACIE Infusion Ceftriaxone Sodium 1 gm/ 100 mls @ 200 mls/hr 07/02/24 11:00 07/02/24 12:15 Sodium Chloride IV 07/06/24 10:59 Infused DAILY MACIE Infusion Metronidazole 500 mg in 100 mls @ 100 mls/hr 07/02/24 12:00 07/03/24 03:53 Flagyl 500 Mg/100 Ml IV 10 mls/hr Q8H MACIE Administration Lactated Ringer's 1,000 mls @ 125 mls/hr 07/03/24 08:00 Lr IV 07/03/24 23:59 .Q8H MACIE Latanoprost 1 drops 07/01/24 21:00 07/02/24 21:10 Latanoprost 0.005% Ophth Drops EACHEYE 1 drops QPM MACIE Administration Olanzapine 7.5 mg 07/01/24 09:00 07/02/24 21:18 Olanzapine Odt 5 Mg Tablet TL 7.5 mg BID MACIE Administration Polyethylene Glycol 17 gm 07/01/24 04:16 Polyethylene Glycol 3350 17 Gm Packet PO DAILY PRN Constipation Sodium Chloride 10 ml 07/01/24 04:16 07/03/24 03:54 Sodium Chloride Flush 0.9% 10 Ml Syringe IVP 10 ml PRN PRN Administration NEEDED PER PROVIDER ORDERS Sodium Chloride 10 ml 07/01/24 09:00 07/03/24 00:30 Sodium Chloride Flush 0.9% 10 Ml Syringe IVP 10 ml 0100,0900,1700 MACIE Administration Objective Vital Signs/Intake & Output Reviewed Vital Signs: Yes Vital Signs: Vital Signs x48h Temp Pulse Resp BP Pulse Ox 07/03/24 04:47 36.6 C 73 20 142/72 H 96 07/03/24 00:23 36.9 C 80 20 128/66 92 Intake & Output: Intake & Output 07/01/24 07/02/24 07/03/24 07/04/24 05:59 05:59 05:59 05:59 Intake Total 1200 / 1200 610 / 610 1570 / 1570 Balance 1200 / 1200 610 / 610 1570 / 1570 Weight (kg) 94 kg 90 kg Objective General Appearance: positive No acute distress and Lethargic Eyes Bilateral: positive Normal inspection ENT: positive ENT inspection nml Neck: positive Nml inspection Respiratory: positive Chest non-tender and No respiratory distress Cardiovascular: positive No murmur and Irregularly irregular Abdomen: positive Non-tender Rectal: positive Non-tender Skin: positive Color nml Extremities: positive Non-tender Neurologic/Psychiatric: positive Other (Tracks with eyes, follows commands, not interactive with interview) Lab Results 07/03/24 05:33 07/03/24 05:33 Other Labs: Lab Results x24hrs 07/03/24 07/02/24 07/02/24 Range/Units 05:33 14:15 10:49 WBC 9.1 (4.8-10.8) x10^3/uL RBC 3.93 L (4.70-6.10) 10^6/uL Hgb 12.1 L (14.0-18.0) g/dL Hct 37.3 L (42.0-52.0) % MCV 94.9 H (80.0-94.0) fL MCH 30.8 (27.0-31.0) pg MCHC 32.4 (32.0-36.0) g/dL RDW 14.3 (12.0-15.0) % Plt Count 122 L (130-450) 10^3/uL MPV 13.6 H (7.4-11.4) fL Neut # (Auto) 7.0 H (1.5-6.6) 10^3/uL Lymph # (Auto) 1.0 L (1.5-3.5) 10^3/uL [place] # (Auto) 1.0 (0.0-1.0) 10^3/uL Eos # (Auto) 0.0 (0.0-0.7) 10^3/uL Baso # (Auto) 0.0 (0.0-0.1) 10^3/uL Absolute Nucleated RBC 0.00 x10^3/uL Nucleated RBC % 0.0 /100WBC PT 25.1 H (9.9-12.6) secs INR 2.4 H (0.8-1.2) Sodium 141 (135-145) mmol/L Potassium 4.4 (3.5-4.5) mmol/L Chloride 110 (101-111) mmol/L Carbon Dioxide 25 (21-32) mmol/L Anion Gap 6.0 (6-13) BUN 37 H (6-20) mg/dL Creatinine 2.8 H (0.6-1.3) mg/dL Estimated GFR (MDRD) 21 L (>89) Glucose 104 (74-104) mg/dL Calcium 9.0 (8.5-10.3) mg/dL Troponin I High Sens 144.8 H* 151.8 H* (2.3-19.7) ng/L 07/02/24 Range/Units 08:10 WBC (4.8-10.8) x10^3/uL RBC (4.70-6.10) 10^6/uL Hgb (14.0-18.0) g/dL Hct (42.0-52.0) % MCV (80.0-94.0) fL MCH (27.0-31.0) pg MCHC (32.0-36.0) g/dL RDW (12.0-15.0) % Plt Count (130-450) 10^3/uL MPV (7.4-11.4) fL Neut # (Auto) (1.5-6.6) 10^3/uL Lymph # (Auto) (1.5-3.5) 10^3/uL [place] # (Auto) (0.0-1.0) 10^3/uL Eos # (Auto) (0.0-0.7) 10^3/uL Baso # (Auto) (0.0-0.1) 10^3/uL Absolute Nucleated RBC x10^3/uL Nucleated RBC % /100WBC PT (9.9-12.6) secs INR (0.8-1.2) Sodium (135-145) mmol/L Potassium (3.5-4.5) mmol/L Chloride (101-111) mmol/L Carbon Dioxide (21-32) mmol/L Anion Gap (6-13) BUN (6-20) mg/dL Creatinine (0.6-1.3) mg/dL Estimated GFR (MDRD) (>89) Glucose (74-104) mg/dL Calcium (8.5-10.3) mg/dL Troponin I High Sens 154.7 H* (2.3-19.7) ng/L Assessment/Plan Problem List (1) Metabolic encephalopathy: Impression: Differentials include worsening of his dementia versus UTI versus aspiration pneumonia Family member at bedside is concerned that he is nearing end-of-life. They mentioned possibility of palliative care consult. I told them that we can certainly accommodate this. We will consider palliative care consult in the next day or 2 if he does not respond to antibiotics 07/03/2024: Mentation is somewhat improved per . Will continue to encourage p.o. intake. He was unable to take medicine yesterday, so antibiotics were changed to IV. I think dehydration could be playing a part in this. He was placed on Lasix when he was admitted, but on further review of home medication list he does not take this regularly. I gave him 1 L of LR yesterday, will give him 2 more liters over the course of today (2) Acute kidney failure: Impression: This is likely secondary to dehydration. I have stopped his Lasix. He received 1 L LR bolus yesterday, I will give him another 2 L today BMP daily while inpatient (3) Elevated troponin: Impression: I have added aspirin EKG with no acute ischemic changes Trended to peak and back down (4) UTI (urinary tract infection): Impression: Rocephin Qualifiers: Hematuria presence: without hematuria Urinary tract infection type: a cute cystitis Qualified Code(s): N30.00 - Acute cystitis without hematuria (5) Pneumonia: Impression: Rocephin/Zithromax/Flagyl IV given somnolence On room air Qualifiers: Laterality: right Lung location: lower lobe of lung Pneumonia type: d ue to unspecified organism Qualified Code(s): J18.9 - Pneumonia, unspecified organism (6) Hypertension: Impression: Kidney function continued to worsen. Holding lisinopril, starting amlodipine (7) CHF (congestive heart failure): Impression: Was given IV Lasix because he had pleural effusion noted on the right.He is maintaining his oxygenation on room air, will hold any further Lasix (8) Atrial fibrillation: Impression: Rate controlled. Takes Coreg twice a week at home. Will give him a dose of Coreg if his heart rate begins to rise (9) Hypercoagulable state due to atrial fibrillation: Impression: Holding warfarin per pharmacy recommendation. They will determine when he is okay to restart
[2024-07-03] MEDS: amLODIPine 5 MG TABLET PO SCH (08:42)
[2024-07-03] MEDS: ASPIRIN EC 81 MG TABLET PO SCH (08:43)
[2024-07-03] MEDS: LACTATED RINGERS 1,000 ML IV SCH (08:50)
[2024-07-03] MEDS: WARFARIN 2.5 MG TABLET PO SCH (09:48)
[2024-07-03] MEDS ORDERED: DICLOFENAC SODIUM 1% GEL 50 GM TUBE TOP PRN (18:29)
[2024-07-03] MEDS: OLANZapine 10 MG VIAL IM ONE (19:42)
[2024-07-04 05:06] LABS: BASOPHILS # (AUTO) 0.1 10^3/uL (0.0-0.1); BASOPHILS % (AUTO) 0.7 %; EOSINOPHILS % (AUTO) 0.2 %; HCT - HEMATOCRIT 37.4 % (42.0-52.0); HGB - HEMOGLOBIN 11.9 g/dL (14.0-18.0); LYMPHOCYTES # (AUTO) 0.9 10^3/uL (1.5-3.5); MEAN CORPUSCULAR HEMOGLOBIN 30.4 pg (27.0-31.0); MEAN CORPUSCULAR HGB CONC 31.8 g/dL (32.0-36.0); MEAN CORPUSCULAR VOLUME 95.4 fL (80.0-94.0); MEAN PLATELET VOLUME 13.6 fL (7.4-11.4); MONOCYTES # (AUTO) 1.1 10^3/uL (0.0-1.0); MONOCYTES % (AUTO) 12.7 %; NEUTROPHILS # (AUTO) 6.8 10^3/uL (1.5-6.6); PLT - PLATELET COUNT 113 10^3/uL (130-450); RED BLOOD COUNT 3.92 10^6/uL (4.70-6.10); RED CELL DISTRIBUTION WIDTH 14.3 % (12.0-15.0)
[2024-07-04 05:18] LABS: CREATININE 2.5 mg/dL (0.6-1.3); POTASSIUM 4.3 mmol/L (3.5-4.5)
--- NOTE | 2024-07-04 10:09 | PROVIDER PROGRESS NOTE ---
Subjective Prog Note Date Prog Note Date: 07/04/24 Subjective Pt reports feeling: Improved Subjective: Mentation slightly improved. Nursing reports he is able to take pills with encouragement Current Medications Current Medications Current Medications: Current Medications Generic Name Dose Route Start Last Admin Trade Name Freq PRN Reason Stop Dose Admin Acetaminophen 650 mg 07/01/24 04:16 Acetaminophen 325 Mg Tablet PO Q4HR PRN Pain 1 to 4, or Fever Albuterol/Ipratropium 3 ml 07/01/24 09:00 Ipratropium/Albuterol 3 Ml Neb INH Q6HR PRN Wheezing Amlodipine Besylate 5 mg 07/03/24 09:00 07/04/24 08:42 Amlodipine 5 Mg Tablet PO 5 mg DAILY MACIE Administration Aspirin 81 mg 07/03/24 09:00 07/04/24 08:42 Aspirin Ec 81 Mg Tablet PO 81 mg DAILY MACIE Administration Diclofenac Sodium 2 gm 07/03/24 18:29 Diclofenac Sodium 1% Gel 50 Gm Tube TOP QID PRN Mild Pain (Level 1-3) Hydralazine HCl 10 mg 07/01/24 14:05 Hydralazine Inj 20 Mg/Ml Vial IVP Q6H PRN SBP> or= 160 OR DBP> or= 110 Ceftriaxone Sodium 1 gm/ 100 mls @ 200 mls/hr 07/02/24 11:00 07/03/24 09:30 Sodium Chloride IV 07/06/24 10:59 Infused DAILY MACIE Infusion Metronidazole 500 mg in 100 mls @ 100 mls/hr 07/02/24 12:00 07/04/24 05:55 Flagyl 500 Mg/100 Ml IV Infused Q8H MACIE Infusion Latanoprost 1 drops 07/01/24 21:00 07/03/24 18:40 Latanoprost 0.005% Ophth Drops EACHEYE Not Given QPM MACIE Olanzapine 7.5 mg 07/01/24 09:00 07/04/24 08:42 Olanzapine Odt 5 Mg Tablet TL 7.5 mg BID MACIE Administration Polyethylene Glycol 17 gm 07/01/24 04:16 Polyethylene Glycol 3350 17 Gm Packet PO DAILY PRN Constipation Sodium Chloride 10 ml 07/01/24 04:16 07/03/24 03:54 Sodium Chloride Flush 0.9% 10 Ml Syringe IVP 10 ml PRN PRN Administration NEEDED PER PROVIDER ORDERS Sodium Chloride 10 ml 07/01/24 09:00 07/04/24 08:44 Sodium Chloride Flush 0.9% 10 Ml Syringe IVP 10 ml 0100,0900,1700 [facility] Administration Warfarin Sodium 2.5 mg 07/03/24 10:00 07/03/24 09:48 Warfarin 2.5 Mg Tablet PO Not Given QDWARFARIN [facility] Objective Vital Signs/Intake & Output Reviewed Vital Signs: Yes Vital Signs: Vital Signs x48h Temp Pulse Pulse Resp BP Pulse Ox 07/04/24 08:48 36.7 C 86 16 162/73 H 95 07/04/24 06:42 155/73 H 07/04/24 05:00 37.0 C 79 22 166/90 H 95 07/04/24 00:54 37.1 C 74 18 145/90 H 93 Intake & Output: Intake & Output 07/02/24 07/03/24 07/04/24 07/05/24 05:59 05:59 05:59 05:59 Intake Total 610 / 610 1570 / 1570 3233 / 3233 50 / 50 Balance 610 / 610 1570 / 1570 3233 / 3233 50 / 50 Weight (kg) 90 kg 94 kg Objective General Appearance: positive No acute distress and Lethargic Eyes Bilateral: positive Normal inspection ENT: positive ENT inspection nml Neck: positive Nml inspection Respiratory: positive Chest non-tender and No respiratory distress Cardiovascular: positive No murmur and Irregularly irregular Abdomen: positive Non-tender Rectal: positive Non-tender Skin: positive Color nml Extremities: positive Non-tender Neurologic/Psychiatric: positive Other (Tracks with eyes, follows commands, not interactive with interview) Lab Results 07/04/24 04:25 07/04/24 04:35 Other Labs: Lab Results x24hrs 07/04/24 07/04/24 Range/Units 04:35 04:25 WBC 9.0 (4.8-10.8) x10^3/uL RBC 3.92 L (4.70-6.10) 10^6/uL Hgb 11.9 L (14.0-18.0) g/dL Hct 37.4 L (42.0-52.0) % MCV 95.4 H (80.0-94.0) fL MCH 30.4 (27.0-31.0) pg MCHC 31.8 L (32.0-36.0) g/dL RDW 14.3 (12.0-15.0) % Plt Count 113 L (130-450) 10^3/uL MPV 13.6 H (7.4-11.4) fL Neut # (Auto) 6.8 H (1.5-6.6) 10^3/uL Lymph # (Auto) 0.9 L (1.5-3.5) 10^3/uL [place] # (Auto) 1.1 H (0.0-1.0) 10^3/uL Eos # (Auto) 0.0 (0.0-0.7) 10^3/uL Baso # (Auto) 0.1 (0.0-0.1) 10^3/uL Absolute Nucleated RBC 0.00 x10^3/uL Nucleated RBC % 0.0 /100WBC Sodium 142 (135-145) mmol/L Potassium 4.3 (3.5-4.5) mmol/L Chloride 111 (101-111) mmol/L Carbon Dioxide 25 (21-32) mmol/L Anion Gap 6.0 (6-13) BUN 39 H (6-20) mg/dL Creatinine 2.5 H (0.6-1.3) mg/dL Estimated GFR (MDRD) 24 L (>89) Glucose 133 H (74-104) mg/dL Calcium 9.0 (8.5-10.3) mg/dL Assessment/Plan Problem List (1) Metabolic encephalopathy: Impression: Differentials include worsening of his dementia versus UTI versus aspiration pneumonia Family member at bedside is concerned that he is nearing end-of-life. They mentioned possibility of palliative care consult. I told them that we can certainly accommodate this. We will consider palliative care consult in the next day or 2 if he does not respond to antibiotics 07/03/2024: Mentation is somewhat improved per . Will continue to encourage p.o. intake. He was unable to take medicine yesterday, so antibiotics were changed to IV. I think dehydration could be playing a part in this. He was placed on Lasix when he was admitted, but on further review of home medication list he does not take this regularly. I gave him 1 L of LR yesterday, will give him 2 more liters over the course of today 07/04/2024: Mentation is more or less the same, may be slightly improved. He is completed 3 days of antibiotics for UTI combined with aspiration pneumonia. I will continue with antibiotics and IV hydration, but I feel that hospice referral is indicated at this time. Patient is approaching 96 hours at this [facility]. He continues to require inpatient management for metabolic encephalopathy secondary to pneumonia, UTI. We are attempting to medically optimize him prior to potential hospice consult, as continued aspiration would qualify for him for hospice care for his advancing dementia. (2) Acute kidney failure: Impression: CR 2.5 today, down from 2.8. Continue LR. BMP in a.m. (3) Elevated troponin: Impression: I have added aspirin EKG with no acute ischemic changes Trended to peak and back down (4) UTI (urinary tract infection): Impression: Rocephin, Transition to Augmentin when he can reliably take pills Qualifiers: Hematuria presence: without hematuria Urinary tract infection type: a cute cystitis Qualified Code(s): N30.00 - Acute cystitis without hematuria (5) Pneumonia: Impression: Day 3 of 5 of RocepNando leonard Completed course of azithromycin De-escalate to p.o. Augmentin when he can reliably take pills, will need 2 more days of antibiotics On room air Qualifiers: Laterality: right Lung location: lower lobe of lung Pneumonia type: d ue to unspecified organism Qualified Code(s): J18.9 - Pneumonia, unspecified organism (6) Hypertension: Impression: Will escalate dose of amlodipine today to 10 mg daily (7) CHF (congestive heart failure): Impression: Was given IV Lasix because he had pleural effusion noted on the right.He is maintaining his oxygenation on room air, will hold any further Lasix (8) Atrial fibrillation: Impression: Rate controlled. Takes Coreg twice a week at home. Will give him a dose of Coreg if his heart rate begins to rise (9) Hypercoagulable state due to atrial fibrillation: Impression: Holding warfarin per pharmacy recommendation. Given poor prognosis and likely hospice consult, we will hold off on restarting warfarin
[2024-07-04] MEDS: amLODIPine 5 MG TABLET PO ONE (11:43)
[2024-07-04] MEDS: LACTATED RINGERS 1,000 ML IV SCH (14:24)
[2024-07-04] MEDS: OLANZapine ODT 5 MG TABLET TL PRN (18:28)
[2024-07-05 05:42] LABS: BASOPHILS % (AUTO) 0.5 %; EOSINOPHILS % (AUTO) 0.5 %; HCT - HEMATOCRIT 39.9 % (42.0-52.0); HGB - HEMOGLOBIN 12.7 g/dL (14.0-18.0); LYMPHOCYTES # (AUTO) 0.8 10^3/uL (1.5-3.5); LYMPHOCYTES % (AUTO) 8.9 %; MEAN CORPUSCULAR HEMOGLOBIN 30.3 pg (27.0-31.0); MEAN CORPUSCULAR HGB CONC 31.8 g/dL (32.0-36.0); MEAN CORPUSCULAR VOLUME 95.2 fL (80.0-94.0); MEAN PLATELET VOLUME 13.4 fL (7.4-11.4); MONOCYTES # (AUTO) 0.9 10^3/uL (0.0-1.0); MONOCYTES % (AUTO) 10.2 %; NEUTROPHILS # (AUTO) 6.9 10^3/uL (1.5-6.6); NEUTROPHILS % (AUTO) 79.6 %; PLT - PLATELET COUNT 119 10^3/uL (130-450); RED BLOOD COUNT 4.19 10^6/uL (4.70-6.10); WHITE BLOOD COUNT 8.7 x10^3/uL (4.8-10.8)
[2024-07-05 05:54] LABS: CALCIUM 9.2 mg/dL (8.5-10.3); POTASSIUM 3.7 mmol/L (3.5-4.5)
--- NOTE | 2024-07-05 07:38 | PROVIDER PROGRESS NOTE ---
Subjective Prog Note Date Prog Note Date: 07/05/24 Subjective Pt reports feeling: Improved Subjective: Family member at bedside states that patient slept well last night, with intermittent activity. States he is eating small bites of pudding, sometimes drinking water. This that he is still not eating solid food Current Medications Current Medications Current Medications: Current Medications Generic Name Dose Route Start Last Admin Trade Name Freq PRN Reason Stop Dose Admin Acetaminophen 650 mg 07/01/24 04:16 Acetaminophen 325 Mg Tablet PO Q4HR PRN Pain 1 to 4, or Fever Albuterol/Ipratropium 3 ml 07/01/24 09:00 Ipratropium/Albuterol 3 Ml Neb INH Q6HR PRN Wheezing Amlodipine Besylate 10 mg 07/05/24 09:00 Amlodipine 5 Mg Tablet PO DAILY MACIE Aspirin 81 mg 07/03/24 09:00 07/04/24 08:42 Aspirin Ec 81 Mg Tablet PO 81 mg DAILY MACIE Administration Diclofenac Sodium 2 gm 07/03/24 18:29 Diclofenac Sodium 1% Gel 50 Gm Tube TOP QID PRN Mild Pain (Level 1-3) Hydralazine HCl 10 mg 07/01/24 14:05 Hydralazine Inj 20 Mg/Ml Vial IVP Q6H PRN SBP> or= 160 OR DBP> or= 110 Ceftriaxone Sodium 1 gm/ 100 mls @ 200 mls/hr 07/02/24 11:00 07/04/24 09:35 Sodium Chloride IV 07/06/24 10:59 Infused DAILY MACIE Infusion Metronidazole 500 mg in 100 mls @ 100 mls/hr 07/02/24 12:00 07/05/24 04:07 Flagyl 500 Mg/100 Ml IV 100 mls/hr Q8H MACIE Administration Latanoprost 1 drops 07/01/24 21:00 07/04/24 22:05 Latanoprost 0.005% Ophth Drops EACHEYE Not Given QPM MACIE Olanzapine 7.5 mg 07/01/24 09:00 07/04/24 22:05 Olanzapine Odt 5 Mg Tablet TL 7.5 mg BID MACIE Administration Olanzapine 5 mg 07/04/24 17:22 07/04/24 18:28 Olanzapine Odt 5 Mg Tablet TL 5 mg BID PRN Administration Agitation Polyethylene Glycol 17 gm 07/01/24 04:16 Polyethylene Glycol 3350 17 Gm Packet PO DAILY PRN Constipation Sodium Chloride 10 ml 07/01/24 04:16 07/03/24 03:54 Sodium Chloride Flush 0.9% 10 Ml Syringe IVP 10 ml PRN PRN Administration NEEDED PER PROVIDER ORDERS Sodium Chloride 10 ml 07/01/24 09:00 07/05/24 01:35 Sodium Chloride Flush 0.9% 10 Ml Syringe IVP Not Given 0100,0900,1700 [facility] Objective Vital Signs/Intake & Output Reviewed Vital Signs: Yes Vital Signs: Vital Signs x48h Temp Pulse Resp BP Pulse Ox 07/04/24 23:45 36.6 C 73 18 154/76 H 94 Intake & Output: Intake & Output 07/03/24 07/04/24 07/05/24 07/06/24 05:59 05:59 05:59 05:59 Intake Total 1570 / 1570 3233 / 3233 2078 / 2078 Output Total 2125 / 2125 600 / 600 Balance 1570 / 1570 3233 / 3233 -46 / -46 -600 / -600 Weight (kg) 90 kg 94 kg 92.5 kg Objective General Appearance: positive No acute distress and Lethargic Eyes Bilateral: positive Normal inspection ENT: positive ENT inspection nml Neck: positive Nml inspection Respiratory: positive Chest non-tender and No respiratory distress Cardiovascular: positive No murmur and Irregularly irregular Abdomen: positive Non-tender Rectal: positive Non-tender Skin: positive Color nml Extremities: positive Non-tender Neurologic/Psychiatric: positive Other (Tracks with eyes, follows commands, not interactive with interview) Lab Results 07/05/24 05:09 07/05/24 05:09 Other Labs: Lab Results x24hrs 07/05/24 Range/Units 05:09 WBC 8.7 (4.8-10.8) x10^3/uL RBC 4.19 L (4.70-6.10) 10^6/uL Hgb 12.7 L (14.0-18.0) g/dL Hct 39.9 L (42.0-52.0) % MCV 95.2 H (80.0-94.0) fL MCH 30.3 (27.0-31.0) pg MCHC 31.8 L (32.0-36.0) g/dL RDW 14.0 (12.0-15.0) % Plt Count 119 L (130-450) 10^3/uL MPV 13.4 H (7.4-11.4) fL Neut # (Auto) 6.9 H (1.5-6.6) 10^3/uL Lymph # (Auto) 0.8 L (1.5-3.5) 10^3/uL [place] # (Auto) 0.9 (0.0-1.0) 10^3/uL Eos # (Auto) 0.0 (0.0-0.7) 10^3/uL Baso # (Auto) 0.0 (0.0-0.1) 10^3/uL Absolute Nucleated RBC 0.00 x10^3/uL Nucleated RBC % 0.0 /100WBC Sodium 142 (135-145) mmol/L Potassium 3.7 (3.5-4.5) mmol/L Chloride 112 H (101-111) mmol/L Carbon Dioxide 26 (21-32) mmol/L Anion Gap 4.0 L (6-13) BUN 27 H (6-20) mg/dL Creatinine 1.0 (0.6-1.3) mg/dL Estimated GFR (MDRD) 71 L (>89) Glucose 174 H (74-104) mg/dL Calcium 9.2 (8.5-10.3) mg/dL Assessment/Plan Problem List (1) Metabolic encephalopathy: Impression: Differentials include worsening of his dementia versus UTI versus aspiration pneumonia Family member at bedside is concerned that he is nearing end-of-life. They mentioned possibility of palliative care consult. I told them that we can certainly accommodate this. We will consider palliative care consult in the next day or 2 if he does not respond to antibiotics 07/03/2024: Mentation is somewhat improved per . Will continue to encourage p.o. intake. He was unable to take medicine yesterday, so antibiotics were changed to IV. I think dehydration could be playing a part in this. He was placed on Lasix when he was admitted, but on further review of home medication list he does not take this regularly. I gave him 1 L of LR yesterday, will give him 2 more liters over the course of today 07/04/2024: Mentation is more or less the same, may be slightly improved. He is completed 3 days of antibiotics for UTI combined with aspiration pneumonia. I will continue with antibiotics and IV hydration, but I feel that hospice referral is indicated at this time. Patient is approaching 96 hours at this critical access hospital. He continues to require inpatient management for metabolic encephalopathy secondary to pneumonia, UTI. We are attempting to medically optimize him prior to potential hospice consult, as continued aspiration would qualify for him for hospice care for his advancing dementia. 07/05/2024: Mentation slightly improved again. His LILY is resolved. He has completed 4 days of antibiotics for UTI/aspiration pneumonia. Hospice referral was sent yesterday, plan to discharge home hospice Saturday. Continue gentle IV hydration and antibiotics, last day abx will be tomorrow (2) Acute kidney failure: Impression: CR 1 today, LILY resolved. Continue gentle IV hydration. BMP in a.m. (3) Elevated troponin: Impression: I have added aspirin EKG with no acute ischemic changes Trended to peak and back down (4) UTI (urinary tract infection): Impression: Rocephin, Transition to Augmentin when he can reliably take pills Qualifiers: Hematuria presence: without hematuria Urinary tract infection type: a cute cystitis Qualified Code(s): N30.00 - Acute cystitis without hematuria (5) Pneumonia: Impression: Day 4 of 5 of RocephinFlagyl Completed course of azithromycin De-escalate to p.o. Augmentin when he can reliably take pills, ABX course to end on 07/06/2024 On room air Qualifiers: Laterality: right Lung location: lower lobe of lung Pneumonia type: d ue to unspecified organism Qualified Code(s): J18.9 - Pneumonia, unspecified organism (6) Hypertension: Impression: LILY resolved. Will switch back to Lisinopril given good effect previously (7) CHF (congestive heart failure): Impression: Was given IV Lasix because he had pleural effusion noted on the right.He is maintaining his oxygenation on room air, will hold any further Lasix (8) Atrial fibrillation: Impression: Rate controlled. Takes Coreg twice a week at home. Will give him a dose of Coreg if his heart rate begins to rise (9) Hypercoagulable state due to atrial fibrillation: Impression: Holding warfarin per pharmacy recommendation. Given poor prognosis and hospice consult, we will hold off on restarting warfarin
[2024-07-05] MEDS: lisinopriL 20 MG TABLET PO SCH (08:16)
[2024-07-05] MEDS ORDERED: amLODIPine 5 MG TABLET PO SCH (09:00)
[2024-07-06 05:58] LABS: BASOPHILS % (AUTO) 0.5 %; EOSINOPHILS # (AUTO) 0.1 10^3/uL (0.0-0.7); EOSINOPHILS % (AUTO) 1.4 %; HCT - HEMATOCRIT 37.1 % (42.0-52.0); LYMPHOCYTES # (AUTO) 0.9 10^3/uL (1.5-3.5); LYMPHOCYTES % (AUTO) 11.8 %; MEAN CORPUSCULAR HGB CONC 32.3 g/dL (32.0-36.0); MEAN CORPUSCULAR VOLUME 95.9 fL (80.0-94.0); MONOCYTES % (AUTO) 12.4 %; NEUTROPHILS # (AUTO) 5.9 10^3/uL (1.5-6.6); NEUTROPHILS % (AUTO) 73.5 %; PLT - PLATELET COUNT 146 10^3/uL (130-450); RED BLOOD COUNT 3.87 10^6/uL (4.70-6.10); RED CELL DISTRIBUTION WIDTH 14.1 % (12.0-15.0)
[2024-07-06 06:09] LABS: CALCIUM 8.8 mg/dL (8.5-10.3); CREATININE 0.8 mg/dL (0.6-1.3); POTASSIUM 3.8 mmol/L (3.5-4.5)
--- NOTE | 2024-07-06 08:23 | PROVIDER PROGRESS NOTE ---
Subjective Prog Note Date Prog Note Date: 07/06/24 Subjective Pt reports feeling: No change Subjective: Asleep at time of my interview Current Medications Current Medications Current Medications: Current Medications Generic Name Dose Route Start Last Admin Trade Name Freq PRN Reason Stop Dose Admin Acetaminophen 650 mg 07/01/24 04:16 Acetaminophen 325 Mg Tablet PO Q4HR PRN Pain 1 to 4, or Fever Albuterol/Ipratropium 3 ml 07/01/24 09:00 Ipratropium/Albuterol 3 Ml Neb INH Q6HR PRN Wheezing Aspirin 81 mg 07/03/24 09:00 07/05/24 08:14 Aspirin Ec 81 Mg Tablet PO 81 mg DAILY MACIE Administration Diclofenac Sodium 2 gm 07/03/24 18:29 Diclofenac Sodium 1% Gel 50 Gm Tube TOP QID PRN Mild Pain (Level 1-3) Hydralazine HCl 10 mg 07/01/24 14:05 Hydralazine Inj 20 Mg/Ml Vial IVP Q6H PRN SBP> or= 160 OR DBP> or= 110 Ceftriaxone Sodium 1 gm/ 100 mls @ 200 mls/hr 07/02/24 11:00 07/05/24 08:45 Sodium Chloride IV 07/06/24 10:59 Infused DAILY MACIE Infusion Metronidazole 500 mg in 100 mls @ 100 mls/hr 07/02/24 12:00 07/06/24 05:46 Flagyl 500 Mg/100 Ml IV Infused Q8H MCAIE Infusion Latanoprost 1 drops 07/01/24 21:00 07/05/24 20:13 Latanoprost 0.005% Ophth Drops EACHEYE Not Given QPM MACIE Lisinopril 20 mg 07/05/24 09:00 07/05/24 08:16 Lisinopril 20 Mg Tablet PO 20 mg DAILY MACIE Administration Olanzapine 7.5 mg 07/01/24 09:00 07/05/24 20:13 Olanzapine Odt 5 Mg Tablet TL 7.5 mg BID MACIE Administration Olanzapine 5 mg 07/04/24 17:22 07/04/24 18:28 Olanzapine Odt 5 Mg Tablet TL 5 mg BID PRN Administration Agitation Polyethylene Glycol 17 gm 07/01/24 04:16 Polyethylene Glycol 3350 17 Gm Packet PO DAILY PRN Constipation Sodium Chloride 10 ml 07/01/24 04:16 07/03/24 03:54 Sodium Chloride Flush 0.9% 10 Ml Syringe IVP 10 ml PRN PRN Administration NEEDED PER PROVIDER ORDERS Sodium Chloride 10 ml 07/01/24 09:00 07/06/24 02:14 Sodium Chloride Flush 0.9% 10 Ml Syringe IVP 10 ml 0100,0900,1700 MACIE Administration Objective Vital Signs/Intake & Output Reviewed Vital Signs: Yes Vital Signs: Vital Signs x48h Temp Pulse Resp BP Pulse Ox 07/04/24 23:45 36.6 C 73 18 154/76 H 94 Intake & Output: Intake & Output 07/04/24 07/05/24 07/06/24 07/07/24 05:59 05:59 05:59 05:59 Intake Total 3233 / 3233 2179 / 2179 1450 / 1450 Output Total 2125 / 2125 1425 / 1425 425 / 425 Balance 3233 / 3233 54 / 54 -425 / -425 Weight (kg) 90 kg 94 kg 92.5 kg 93 kg Objective General Appearance: positive No acute distress and Lethargic Eyes Bilateral: positive Normal inspection ENT: positive ENT inspection nml Neck: positive Nml inspection Respiratory: positive Chest non-tender and No respiratory distress Cardiovascular: positive No murmur and Irregularly irregular Abdomen: positive Non-tender Rectal: positive Non-tender Skin: positive Color nml Extremities: positive Non-tender Neurologic/Psychiatric: positive Other (Tracks with eyes, follows commands, not interactive with interview) Lab Results 07/06/24 05:24 07/06/24 05:24 Other Labs: Lab Results x24hrs 07/06/24 Range/Units 05:24 WBC 8.0 (4.8-10.8) x10^3/uL RBC 3.87 L (4.70-6.10) 10^6/uL Hgb 12.0 L (14.0-18.0) g/dL Hct 37.1 L (42.0-52.0) % MCV 95.9 H (80.0-94.0) fL MCH 31.0 (27.0-31.0) pg MCHC 32.3 (32.0-36.0) g/dL RDW 14.1 (12.0-15.0) % Plt Count 146 (130-450) 10^3/uL MPV 13.0 H (7.4-11.4) fL Neut # (Auto) 5.9 (1.5-6.6) 10^3/uL Lymph # (Auto) 0.9 L (1.5-3.5) 10^3/uL [place] # (Auto) 1.0 (0.0-1.0) 10^3/uL Eos # (Auto) 0.1 (0.0-0.7) 10^3/uL Baso # (Auto) 0.0 (0.0-0.1) 10^3/uL Absolute Nucleated RBC 0.00 x10^3/uL Nucleated RBC % 0.0 /100WBC Sodium 145 (135-145) mmol/L Potassium 3.8 (3.5-4.5) mmol/L Chloride 113 H (101-111) mmol/L Carbon Dioxide 28 (21-32) mmol/L Anion Gap 4.0 L (6-13) BUN 23 H (6-20) mg/dL Creatinine 0.8 (0.6-1.3) mg/dL Estimated GFR (MDRD) 91 (>89) Glucose 95 (74-104) mg/dL Calcium 8.8 (8.5-10.3) mg/dL Assessment/Plan Problem List (1) Metabolic encephalopathy: Impression: Differentials include worsening of his dementia versus UTI versus aspiration pneumonia Family member at bedside is concerned that he is nearing end-of-life. They mentioned possibility of palliative care consult. I told them that we can certainly accommodate this. We will consider palliative care consult in the next day or 2 if he does not respond to antibiotics 07/03/2024: Mentation is somewhat improved per . Will continue to encourage p.o. intake. He was unable to take medicine yesterday, so antibiotics were changed to IV. I think dehydration could be playing a part in this. He was placed on Lasix when he was admitted, but on further review of home medication list he does not take this regularly. I gave him 1 L of LR yesterday, will give him 2 more liters over the course of today 07/04/2024: Mentation is more or less the same, may be slightly improved. He is completed 3 days of antibiotics for UTI combined with aspiration pneumonia. I will continue with antibiotics and IV hydration, but I feel that hospice referral is indicated at this time. Patient is approaching 96 hours at this critical access hospital. He continues to require inpatient management for metabolic encephalopathy secondary to pneumonia, UTI. We are attempting to medically optimize him prior to potential hospice consult, as continued aspiration would qualify for him for hospice care for his advancing dementia. 07/05/2024: Mentation slightly improved again. His LILY is resolved. He has completed 4 days of antibiotics for UTI/aspiration pneumonia. Hospice referral was sent yesterday, plan to discharge home hospice Saturday. Continue gentle IV hydration and antibiotics, last day abx will be tomorrow 07/06/2024:Today he is asleep at time of my interview, resists any attempts to talk to him. Family member at bedside is attempting to feed him but he will not allow it. He has completed 5 days of antibiotics (2) Acute kidney failure: Impression: Resolved. BMP in a.m. (3) Elevated troponin: Impression: I have added aspirin EKG with no acute ischemic changes Trended to peak and back down (4) UTI (urinary tract infection): Impression: Rocephin, Transition to Augmentin when he can reliably take pills Qualifiers: Hematuria presence: without hematuria Urinary tract infection type: a cute cystitis Qualified Code(s): N30.00 - Acute cystitis without hematuria (5) Pneumonia: Impression: Completed course of Rocephin, Flagyl, azithromycin On room air Qualifiers: Laterality: right Lung location: lower lobe of lung Pneumonia type: d ue to unspecified organism Qualified Code(s): J18.9 - Pneumonia, unspecified organism (6) Hypertension: Impression: LILY resolved. Will switch back to Lisinopril given good effect previously (7) CHF (congestive heart failure): Impression: Was given IV Lasix because he had pleural effusion noted on the right. He is maintaining his oxygenation on room air, will hold any further Lasix (8) Atrial fibrillation: Impression: Rate controlled. Takes Coreg twice a week at home. Will give him a dose of Coreg if his heart rate begins to rise (9) Hypercoagulable state due to atrial fibrillation: Impression: Holding warfarin per pharmacy recommendation. Given poor prognosis and hospice consult, we will hold off on restarting warfarin
[2024-07-06] MEDS: MORPHINE SOL 10 MG/0.5 ML ORAL SYRINGE PO PRN (14:43)
[2024-07-06] MEDS: KETOROLAC 15 MG/ML VIAL IVP STA (15:59)
--- NOTE | 2024-07-06 17:04 | XRAY Report ---
PROCEDURE: XR Wrist 1-2V RT INDICATIONS: Eval for hand/wrist trauma TECHNIQUE: 3 views of the wrist were acquired. COMPARISON: None. FINDINGS: Bones: There is a mildly displaced fracture of the triquetrum. Soft tissues: No suspicious soft tissue calcifications or masses. Chondrocalcinosis. Widening of t he scapholunate interval. IMPRESSION: Mildly displaced fracture of the triquetrum. Chondrocalcinosis, which could be age-related, associated with CPPD or parathyroid disorder. Widening of the scapholunate interval, suggestive of remote injury. Reviewed by: Martir Duran MD on 07/06/2024 5:02 PM PST Approved by: Martir Duran MD on 07/06/2024 5:02 PM PST Station ID: [id number]
[2024-07-07 01:30] VITALS: O2SAT 92
[2024-07-07] MEDS ORDERED: ACETAMINOPHEN 325 MG TABLET PO PRN (01:41)
[2024-07-07] MEDS: ACETAMINOPHEN 1,000 MG/100 ML 1,000 MG/100 ML BAG IV PRN (02:11)
[2024-07-07 05:53] LABS: BASOPHILS # (AUTO) 0.1 10^3/uL (0.0-0.1); BASOPHILS % (AUTO) 0.7 %; EOSINOPHILS # (AUTO) 0.1 10^3/uL (0.0-0.7); EOSINOPHILS % (AUTO) 1.1 %; HCT - HEMATOCRIT 36.5 % (42.0-52.0); HGB - HEMOGLOBIN 11.6 g/dL (14.0-18.0); LYMPHOCYTES % (AUTO) 14.8 %; MEAN CORPUSCULAR HEMOGLOBIN 30.6 pg (27.0-31.0); MEAN CORPUSCULAR HGB CONC 31.8 g/dL (32.0-36.0); MEAN CORPUSCULAR VOLUME 96.3 fL (80.0-94.0); MEAN PLATELET VOLUME 12.9 fL (7.4-11.4); MONOCYTES # (AUTO) 0.9 10^3/uL (0.0-1.0); MONOCYTES % (AUTO) 12.8 %; NEUTROPHILS # (AUTO) 4.9 10^3/uL (1.5-6.6); NEUTROPHILS % (AUTO) 70.3 %; PLT - PLATELET COUNT 148 10^3/uL (130-450); RED BLOOD COUNT 3.79 10^6/uL (4.70-6.10); RED CELL DISTRIBUTION WIDTH 13.9 % (12.0-15.0)
[2024-07-07 06:06] LABS: CALCIUM 8.8 mg/dL (8.5-10.3)
--- NOTE | 2024-07-07 07:12 | Discharge Summary ---
"Discharge Summary Admit Date: 07/01/24 Discharge Date: 07/07/24 Discharging Provider: Annamarie Hunter PA-C Primary Care Provider: Meera Marquis Code Status: Do Not Attempt Resuscitation DIAGNOSES Discharge Diagnoses with Status of Each Condition: Metabolic encephalopathy, present on admission, end-of-life. Acute kidney failure Elevated troponin Urinary tract infection Pneumonia Hypertension CHF Atrial fibrillation Anticoagulation with warfarin for atrial fibrillation HPI History of Present Illness: 89M c dementia and atrial fibrillation on Coumadin who was brought into the Hospital for report of altered mentation. is at bedside proving all information. Patient is somnolent at this time. Per , patient for the past couple of days has had decreased verbal communication. He was noted for frequent urination. He today was confused and not following command and not able to ambulate despite assistance. decided to bring patient into the ED. reports patient at baseline is able to assist with ADLs. He is able to communicate appropriately. Past couple of days and especially today, patient could not verbalize or assist with ADLs. No report of fever. Patient chronically aspirates. No report of runny nose. No report of sore throat. No report of chest pain. No n/v/d. No travel and no sick contact. CONSULTS | PROCEDURES Procedures: Chest x-ray: Prominent interstitial markings, most consistent with pulmonary edema. Large right pleural effusion with adjacent atelectasis versus consolidation Right wrist x-ray: Mildly displaced fracture of the triquetrum Chondrocalcinosis Widening the scapholunate interval, suggestive of remote injury. HOSPITAL COURSE Hospital Course: (1) Metabolic encephalopathy: Impression: Differentials include worsening of his dementia versus UTI versus aspiration pneumonia 07/03/2024: Mentation is somewhat improved per . Will continue to encourage p.o. intake. He was unable to take medicine yesterday, so antibiotics were changed to IV. I think dehydration could be playing a part in this. He was placed on Lasix when he was admitted, but on further review of home medication list he does not take this regularly. I gave him 1 L of LR yesterday, will give him 2 more liters over the course of today 07/04/2024: Mentation is more or less the same, may be slightly improved. He is completed 3 days of antibiotics for UTI combined with aspiration pneumonia. I will continue with antibiotics and IV hydration, but I feel that hospice referral is indicated at this time. Patient is approaching 96 hours at this critical access hospital. He continues to require inpatient management for metabolic encephalopathy secondary to pneumonia, UTI. We are attempting to medically optimize him prior to potential hospice consult, as continued aspiration would qualify for him for hospice care for his advancing dementia. 07/05/2024: Mentation slightly improved again. His LILY is resolved. He has completed 4 days of antibiotics for UTI/aspiration pneumonia. Hospice referral was sent yesterday, plan to discharge home hospice Saturday. Continue gentle IV hydration and antibiotics, last day abx will be tomorrow 07/06/2024:Today he is asleep at time of my interview, resists any attempts to talk to him. Family member at bedside is attempting to feed him but he will not allow it. He has completed 5 days of antibiotics 07/06/24:Family member at bedside is concerned that he is nearing end-of-life. They mentioned possibility of palliative care consult. I told them that we can certainly accommodate this. We will consider palliative care consult in the next day or 2 if he does not respond to antibiotics 07/07/24: On the day prior decision was made that patient was discharged to home on hospice on comfort care. He will be admitted to hospice within an hour of arriving home. (2) Acute kidney failure: Impression: Resolved. (3) Elevated troponin: Impression: EKG with no acute ischemic changes Trended to peak and back down (4) UTI (urinary tract infection): Impression: Treated with Rocephin Qualifiers: Hematuria presence: without hematuria Urinary tract infection type: a cute cystitis Qualified Code(s): N30.00 - Acute cystitis without hematuria (5) Pneumonia: Impression: Completed course of Rocephin, Flagyl, azithromycin On room air Qualifiers: Laterality: right Lung location: lower lobe of lung Pneumonia type: d ue to unspecified organism Qualified Code(s): J18.9 - Pneumonia, unspecified organism (6) Hypertension: Impression: LILY resolved. Lisinopril was discontinued (7) CHF (congestive heart failure): Impression: Was given IV Lasix because he had pleural effusion noted on the right. He is maintaining his oxygenation on room air, will hold any further Lasix (8) Atrial fibrillation: Impression: Rate controlled. Takes Coreg twice a week at home. . Tomorrow this was discontinued in light of comfort care status. (9) Hypercoagulable state due to atrial fibrillation: Impression: Warfarin was not restarted due to comfort care status. ALLERGIES Allergies Allergy/AdvReac Type Severity Reaction Status Date / Time hazelnut Allergy Severe Anaphylaxis Verified 03/18/24 11:12 nitroglycerin AdvReac Intermediate low b/p Verified 03/18/24 11:12 hydromorphone AdvReac Unknown Verified 03/18/24 11:12 MEDICATIONS Ambulatory Orders Medication Instructions Recorded Confirmed furosemide 20 mg tablet 20 mg PO UD PRN edema 07/01/24 07/01/24 latanoprost 0.005 % eye drops 1 drp ophthalmic (eye) QPM 07/01/24 07/01/24 olanzapine 7.5 mg tablet 7.5 mg PO BID 07/01/24 07/01/24 diclofenac sodium 1 % topical gel 2 g topical QID PRN Mild Pain 07/06/24 (Arthritis Pain (diclofenac)) (Level 1-3) 30 days #1 g lisinopril 20 mg tablet 20 mg PO DAILY 30 days #30 tabs 07/06/24 olanzapine 5 mg disintegrating 5 mg translingual BID PRN 07/06/24 tablet Agitation 30 days #30 tabs polyethylene glycol 3350 17 gram 17 g PO DAILY PRN Constipation 30 07/06/24 oral powder packet days #30 ea morphine 10 mg/5 mL oral solution 5 mg (2.5 mL) PO Q4H #105 mL 07/07/24 PHYSICAL EXAM AT DISCHARGE General Appearance: positive No acute distress and Other (Comatose) Eyes Bilateral: positive Normal inspection ENT: positive ENT inspection nml and Dry mucous membranes Neck: positive Nml inspection Respiratory: positive No respiratory distress and Rhonchi Cardiovascular: positive Irregularly irregular Abdomen: positive No distention Skin: positive Color nml Extremities: positive No pedal edema Neurologic/Psychiatric: positive Other (Comatose) LABS 07/07/24 05:25 07/07/24 05:25 FOLLOW UP Follow Up: he will be admitted to hospice services on arrival at home. comfort meds of roxanol were sent. he has olanzepine at home already. TIME SPENT Time Spent in Discharge (Minutes): 45 Discharge Plan Discharge Patient Disposition: 50 Hospice/Home DC/Xfer Condition: Serious Medically Cleared Date:: 07/06/24 Prescriptions: New diclofenac sodium [Arthritis Pain (diclofenac)] 1 % Gel 2 g topical QID PRN (Reason: Mild Pain (Level 1-3)) 30 Days Qty: 1 0RF lisinopril 20 mg Tablet 20 mg PO DAILY 30 Days Qty: 30 0RF olanzapine 5 mg Tablet,Disintegrating 5 mg translingual BID PRN (Reason: Agitation) 30 Days Qty: 30 0RF polyethylene glycol 3350 17 gram Powder In Packet 17 g PO DAILY PRN (Reason: Constipation) 30 Days Qty: 30 0RF morphine 10 mg/5 mL solution 5 mg PO Q4H Qty: 105 0RF Continued latanoprost 0.005 % drops 1 drp ophthalmic (eye) QPM Patient Comments: insert 1 drop into both eyes every evening olanzapine 7.5 mg tablet 7.5 mg PO BID Patient Comments: TAKE 1 TABLET BY MOUTH TWICE DAILY, AM w/ breakfast, PM w/ dinner. furosemide 20 mg tablet 20 mg PO UD PRN (Reason: edema) Patient Comments: Twice weekly PRN Discontinued warfarin [Jantoven] 5 MG tablet 5 mg PO .jones,tu,we,fr,sa Patient Comments: Patient's states that he takes 1/2 tab mon/thurs, and one full tab all other days. Takes at dinner. 07/01/2024 warfarin 5 mg tablet 2.5 mg PO ., Rx Instructions: Patient's states that he takes 1/2 tab mon/thurs, and one full tab all other days. Takes at dinner. Activity Restrictions: Activity as Tolerated Diet: Soft Health Concerns: You are a 89-year-old male with history of Lewy body dementia and atrial fibrillation previously on Coumadin who was brought into the hospital for altered mentation. You were found to have a UTI and aspiration pneumonia. You were admitted so that we could optimize your mental status before determining the next phase of care. You completed a course of antibiotics and your mentation has not improved. Hospice referral was sent as dysphagia combined with known dementia qualifies you for hospice. Just because you are on hospice, does not mean that she have to stay on hospice. If for any reason you would like to come off of hospice please discuss with them regarding ongoing treatment. Print Language: Vietnamese Patient Instructions: Hospice Stand Alone Forms: PCP List Follow-up Care: Meera Marquis MD [Primary Care Provider] -"
== END 2024-07-07 08:45 | disposition hospice, home (50) | DRG 177 ==
LOC: EDBD → ED 02:57 → MS2 04:34
PROVIDERS: ADMIT Internal Medicine; ATTEND Internal Medicine
DX: Z20.822 Contact with and (suspected) exposure to COVID-19; Z20.828 Contact with and (suspected) exposure to other viral communicable diseases; Z66 Do not resuscitate; I48.91 Unspecified atrial fibrillation; J18.9 Pneumonia, unspecified organism; Z79.01 Long term (current) use of anticoagulants; I50.9 Heart failure, unspecified; I25.2 Old myocardial infarction; N17.9 Acute kidney failure, unspecified; F02.80 Dementia in other diseases classified elsewhere, unspecified severity, without behavioral disturbance, psychotic disturbance, mood disturbance, and anxiety; G31.83 Neurocognitive disorder with Lewy bodies; Z79.899 Other long term (current) drug therapy; I11.0 Hypertensive heart disease with heart failure; G93.41 Metabolic encephalopathy; Z20.818 Contact with and (suspected) exposure to other bacterial communicable diseases; J69.0 Pneumonitis due to inhalation of food and vomit; N30.00 Acute cystitis without hematuria